=== PATIENT | male | born 1940 | race Caucasian/White ===

== ENCOUNTER 2017-11-17 14:14 | Emergency (ER) | payer OTHER ==
[2017-11-17 14:28] VITALS: BMI 23.8
--- NOTE | 2017-11-17 14:28 | PDOC ---
Rapid Medical Evaluation Time Seen by Provider: 11/17/17 14:25 Medical Evaluation: Allergies Allergy/AdvReac Type Severity Reaction Status Date / Time No Known Allergies Allergy Verified 11/17/17 14:24 I have performed a brief in-person evaluation of this patient. The patient presents with a chief complaint of: dizziness while lying in bed for the past few weeks Pertinent physical exam findings: none I have ordered the following: ekg, basic labs The patient will proceed to the ED for further evaluation. Discharge Disposition - Referrals Referrals: Cristian Al MD [Primary Care Provider] - - Patient Instructions - Post Discharge Activity
[2017-11-17 14:44] LABS: BASO % 0.3 % (0-2.0); EOS % 1.8 % (0-4.5); HEMOGLOBIN 15.8 GM/dL (11.7-16.9); LYMPH % 9.8 % (8-40); MCH 31.1 pg (25.7-33.7); MCHC 32.9 g/dl (32.0-35.9); MEAN CELL VOLUME 94.6 fl (80-96); MEAN PLT VOLUME 8.3 fl (7.5-11.1); MONO % 6.9 % (3.8-10.2); NEUT % 81.2 % (42.8-82.8); PLATELET COUNT 195 K/MM3 (134-434); RBC 5.07 M/mm3 (4.00-5.60); RDW 13.1 % (11.9-15.9); WHITE BLOOD COUNT 9.5 K/mm3 (4.0-10.0)
[2017-11-17 15:23] LABS: ALBUMIN 4.5 g/dl (3.4-5.0); ANION GAP 7 (8-16); BILIRUBIN,TOTAL 0.6 mg/dL (0.2-1.0); BLOOD UREA NITROGEN 20 mg/dL (7-18); CALCIUM 8.7 mg/dL (8.5-10.1); CHLORIDE 107 mmol/L (98-107); CO2 26 mmol/L (21-32); CREATININE 0.8 mg/dL (0.7-1.3); GLUCOSE,RANDOM 97 mg/dL (74-106); POTASSIUM 3.9 mmol/L (3.5-5.1); SGOT/AST 18 U/L (15-37); SGPT/ALT 33 U/L (12-78); SODIUM 140 mmol/L (136-145); TOT PROT 7.8 g/dl (6.4-8.2)
[2017-11-17 15:26] LABS: ALK PHOS 86 U/L (45-117)
--- NOTE | 2017-11-17 15:45 | EKG ---
Test Reason : Blood Pressure : / mmHG Vent. Rate : 075 BPM Atrial Rate : 075 BPM P-R Int : 154 ms QRS Dur : 082 ms QT Int : 372 ms P-R-T Axes : 063 054 058 degrees QTc Int : 415 ms NORMAL SINUS RHYTHM POSSIBLE LEFT ATRIAL ENLARGEMENT NO PREVIOUS ECGS AVAILABLE Confirmed by SHERLYN GUNTER MD ([id number]) on 11/17/2017 3:45:25 PM Referred By: Confirmed By:SHERLYN GUNTER MD
--- NOTE | 2017-11-17 16:18 | PDOC ---
History of Present Illness - General History Source: Patient Exam Limitations: No Limitations - History of Present Illness Initial Comments: 11/17/17 18:03 The patient is a 77 year old male with a significant PMH of hypoglycemia, asthma , HTN, and diverticulitis who presents to the emergency department with lightheadedness and generalized malaise beginning approximately 10 days ago. He reports feeling as though something came over him which is aggravated by lying in bed but he is unable to describe his feeling further. He also reports some associated and light chest pressure and nausea but denies vomiting. The patient reports he has been noncompliant with his prescribed Metoprolol. He denies decreased balance. He denies feeling like the room is spinning. The patient denies shortness of breath, headache and dizziness. Denies fever, chills, vomit, diarrhea and constipation. Denies dysuria, frequency, urgency and hematuria. Allergies: NKA Past surgical history: Appendectomy. Social history: No reported cigarette, alcohol, or drug use. PCP: Dr. Cristian Al <Meng Ornelas - Last Filed: 11/17/17 18:03> <Charo Rodriguez - Last Filed: 11/17/17 19:00> - General Chief Complaint: Lightheaded Stated Complaint: SICK Time Seen by Provider: 11/17/17 14:25 Past History <Meng Ornelas - Last Filed: 11/17/17 18:03> - Past Medical History Anemia: No Asthma: Yes Cancer: No Cardiac Disorders: No CVA: No COPD: No CHF: No DVT: No Dementia: No Diabetes: (HYPOGLYCEMIA) GI Disorders: Yes (DIVERTICULITIS) Disorders: No HTN: Yes Hypercholesterolemia: No Liver Disease: No Seizures: No Thyroid Disease: No - Surgical History Abdominal Surgery: Yes (HERNIA) Appendectomy: Yes Cardiac Surgery: No Cholecystectomy: No Lung Surgery: No Neurologic Surgery: No Orthopedic Surgery: No - Suicide/Smoking/Psychosocial Hx Smoking History: Never smoked Have you smoked in the past 12 months: No Information on smoking cessation initiated: No Hx Alcohol Use: No Drug/Substance Use Hx: No Substance Use Type: None Hx Substance Use Treatment: No <Charo Rodriguez - Last Filed: 11/17/17 19:00> - Past Medical History Allergies/Adverse Reactions: Allergies Allergy/AdvReac Type Severity Reaction Status Date / Time No Known Allergies Allergy Verified 11/17/17 14:24 Home Medications: Ambulatory Orders Ubidecarenone/Vit E Acet [Co Q-10 100 mg Softgel] 1 each PO DAILY 02/14/12 Budesonide/Formeterol Fumarate [SYMBICORT 80/4.5mcg -] 1 inh PO DAILY 01/21/14 Cholecalciferol (Vitamin D3) [Vitamin D-3] 2,000 units PO DAILY 01/21/14 Metoprolol Succinate [Toprol XL -] 25 mg PO DAILY 01/21/14 Hydrocodone Bit/Acetaminophen [Vicodin 5-500mg Tablet -] 1 - 2 tab PO Q6H PRN # 56 tablet 01/22/14 Review of Systems - Review of Systems Able to Perform ROS?: Yes Comments:: 11/17/17 18:03 GENERAL/CONSTITUTIONAL: (+) Generalized malaise. No fever or chills. No weakness. HEAD, EYES, EARS, NOSE AND THROAT: No change in vision. No ear pain or discharge. No sore throat. CARDIOVASCULAR: No chest pain or shortness of breath. RESPIRATORY: No cough, wheezing, or hemoptysis. GASTROINTESTINAL: No nausea, vomiting, diarrhea or constipation. GENITOURINARY: No dysuria, frequency, or change in urination. MUSCULOSKELETAL: No joint or muscle swelling or pain. No neck or back pain. SKIN: No rash NEUROLOGIC: (+) Lightheadedness. No headache, vertigo, loss of consciousness, or change in strength. ENDOCRINE: No increased thirst. No abnormal weight change. HEMATOLOGIC/LYMPHATIC: No anemia, easy bleeding, or history of blood clots. ALLERGIC/IMMUNOLOGIC: No hives or skin allergy. <Meng Ornelas - Last Filed: 11/17/17 18:03> *Physical Exam - Vital Signs Last Vital Signs Temp Pulse Resp BP Pulse Ox 98.6 F 86 16 173/89 96 11/17/17 17:49 11/17/17 17:49 11/17/17 17:49 11/17/17 17:49 11/17/17 17:49 - Physical Exam Comments: 11/17/17 18:03 GENERAL: Awake, alert, and fully oriented, in no acute distress HEAD: No signs of trauma EYES: PERRLA, EOMI, sclera anicteric, conjunctiva clear ENT: Auricles normal inspection, hearing grossly normal, nares patent, oropharynx clear without exudates. Moist mucosa NECK: Normal ROM, supple, no lymphadenopathy, JVD, or masses LUNGS: (+) Expiratory wheezing. Breath sounds equal. No crackles. HEART: Regular rate and rhythm, normal S1 and S2, no murmurs, rubs or gallops ABDOMEN: Soft, nontender, normoactive bowel sounds. No guarding, no rebound. No masses EXTREMITIES: Normal range of motion, no edema. No clubbing or cyanosis. No cords, erythema, or tenderness NEUROLOGICAL: Cranial nerves II through XII grossly intact. Normal speech, normal gait SKIN: Warm, Dry, normal turgor, no rashes or lesions noted. <Meng Ornelas - Last Filed: 11/17/17 18:03> - Vital Signs Last Vital Signs Temp Pulse Resp BP Pulse Ox 98.0 F 85 18 171/96 100 11/17/17 14:26 11/17/17 14:26 11/17/17 14:26 11/17/17 14:26 11/17/17 14:26 <Charo Rodriguez - Last Filed: 11/17/17 19:00> Heart Score/ECG Review - ECG Impressions Comment:: EKG read 18:39- NSR 80 bpm, no acute ST/T changes <Charo Rodriguez - Last Filed: 11/17/17 19:00> ED Treatment Course - LABORATORY CBC & Chemistry Diagram: 11/17/17 14:37 11/17/17 14:37 - ADDITIONAL ORDERS Additional order review: Laboratory Results 11/17/17 14:37 Sodium 140 Potassium 3.9 Chloride 107 Carbon Dioxide 26 Anion Gap 7 L BUN 20 H Creatinine 0.8 Creat Clearance w eGFR > 60 Random Glucose 97 Calcium 8.7 Total Bilirubin 0.6 AST 18 ALT 33 Alkaline Phosphatase 86 Creatine Kinase 103 Troponin I < 0.02 Total Protein 7.8 Albumin 4.5 11/17/17 14:37 RBC 5.07 MCV 94.6 MCHC 32.9 RDW 13.1 MPV 8.3 Neutrophils % 81.2 Lymphocytes % 9.8 Monocytes % 6.9 Eosinophils % 1.8 Basophils % 0.3 <Meng Ornelas - Last Filed: 11/17/17 18:03> - LABORATORY CBC & Chemistry Diagram: 11/17/17 14:37 11/17/17 14:37 - ADDITIONAL ORDERS Additional order review: Laboratory Results 11/17/17 14:37 Sodium 140 Potassium 3.9 Chloride 107 Carbon Dioxide 26 Anion Gap 7 L BUN 20 H Creatinine 0.8 Creat Clearance w eGFR > 60 Random Glucose 97 Calcium 8.7 Total Bilirubin 0.6 AST 18 ALT 33 Alkaline Phosphatase 86 Creatine Kinase 103 Troponin I < 0.02 Total Protein 7.8 Albumin 4.5 11/17/17 14:37 RBC 5.07 MCV 94.6 MCHC 32.9 RDW 13.1 MPV 8.3 Neutrophils % 81.2 Lymphocytes % 9.8 Monocytes % 6.9 Eosinophils % 1.8 Basophils % 0.3 <Charo Rodriguez - Last Filed: 11/17/17 19:00> *DC/Admit/Observation/Transfer - Attestations Scribe Attestion: 11/17/17 18:03 Documentation prepared by Meng Ornelas, acting as medical doctor nuclear medicine for Charo Rodriguez MD. <Meng Ornelas - Last Filed: 11/17/17 18:03> - Discharge Dispostion Admit: No <Charo Rodriguez - Last Filed: 11/17/17 19:00> Diagnosis at time of Disposition: Dizziness - Discharge Dispostion Disposition: HOME Condition at time of disposition: Stable - Referrals Referrals: Cristian Al MD [Primary Care Provider] - - Patient Instructions - Post Discharge Activity
[2017-11-17 17:50] VITALS: BP 173/89; PULSE 86; TEMP 98.6
[2017-11-17] MEDS: ALBUTEROL SO4 2.5/IPRATROPIUM 0.5 INH SOL 3 ML VIAL.NEB. NEB SCH ×3 (18:02→18:36)
[2017-11-17] MEDS ORDERED: ALBUTEROL SO4 2.5/IPRATROPIUM 0.5 INH SOL 3 ML VIAL.NEB. NEB ONE (18:03)
--- NOTE | 2017-11-19 08:40 | EKG ---
Test Reason : Blood Pressure : / mmHG Vent. Rate : 080 BPM Atrial Rate : 080 BPM P-R Int : 144 ms QRS Dur : 090 ms QT Int : 368 ms P-R-T Axes : 012 041 054 degrees QTc Int : 424 ms NORMAL SINUS RHYTHM NORMAL ECG WHEN COMPARED WITH ECG OF 17-NOV-2017 14:36, NONSPECIFIC T WAVE ABNORMALITY, WORSE IN ANTERIOR LEADS Confirmed by IVA REAL, FANTA ([id number]) on 11/19/2017 8:40:52 AM Referred By: Confirmed By:FANTA ENRIQUE MD
== END 2017-11-17 19:06 | disposition home or self-care (01) ==
LOC: JER 14:14
PROC: 3E0F7GC Introduction of Other Therapeutic Substance into Respiratory Tract, Via Natural or Artificial Opening (ICD-10-PCS; principal; 2017-11-17)
DX: R42 Dizziness and giddiness (principal); J45.909 Unspecified asthma, uncomplicated; I10 Essential (primary) hypertension; Z87.19 Personal history of other diseases of the digestive system
CPT/HCPCS: 36415; 71046-TC-FY; 80053; 82550; 84484; 85025; 93005; 93010; 94640; 99283-25

== ENCOUNTER 2018-03-20 18:50 | Inpatient (IN) | payer OTHER ==
--- NOTE | 2018-03-20 18:56 | PDOC ---
Rapid Medical Evaluation Time Seen by Provider: 03/20/18 18:52 Medical Evaluation: Allergies Allergy/AdvReac Type Severity Reaction Status Date / Time No Known Allergies Allergy Verified 11/17/17 14:24 I have performed a brief in-person evaluation of this patient. The patient presents with a chief complaint of: sent by his PCP (Dr. Cristian Al) for work up and retirement placement. Patient has no complaints Pertinent physical exam findings: none I have ordered the following: labs, UA/culture The patient will proceed to the ED for further evaluation. Discharge Disposition - Diagnosis Pain - Referrals - Patient Instructions - Post Discharge Activity
--- NOTE | 2018-03-20 20:23 | PDOC ---
History of Present Illness - General Chief Complaint: Pain Stated Complaint: PCP SENT ADMISSION, ? N.H PLACEMENT Time Seen by Provider: 03/20/18 18:52 - History of Present Illness Initial Comments: 03/20/18 20:23 77 year old male with a significant PMH of hypoglycemia, asthma, HTN, and diverticulitis send by PCP for frequent falls and progressively worsening memory loss. send by Dr. Al for evaluation. 03/20/18 21:38 Past History - Past Medical History Allergies/Adverse Reactions: Allergies Allergy/AdvReac Type Severity Reaction Status Date / Time No Known Allergies Allergy Verified 03/20/18 18:54 Home Medications: Ambulatory Orders Ubidecarenone/Vit E Acet [Co Q-10 100 mg Softgel] 1 each PO DAILY 02/14/12 Budesonide/Formeterol Fumarate [SYMBICORT 80/4.5mcg -] 1 inh PO DAILY 01/21/14 Cholecalciferol (Vitamin D3) [Vitamin D-3] 2,000 units PO DAILY 01/21/14 Metoprolol Succinate [Toprol XL -] 25 mg PO DAILY 01/21/14 Hydrocodone Bit/Acetaminophen [Vicodin 5-500mg Tablet -] 1 - 2 tab PO Q6H PRN # 56 tablet 01/22/14 Anemia: No Asthma: Yes Cancer: No Cardiac Disorders: No CVA: No COPD: No CHF: No DVT: No Dementia: Yes Diabetes: (HYPOGLYCEMIA) GI Disorders: Yes (DIVERTICULITIS) Disorders: No HTN: Yes Hypercholesterolemia: No Liver Disease: No Seizures: No Thyroid Disease: No - Surgical History Abdominal Surgery: Yes (HERNIA) Appendectomy: Yes Cardiac Surgery: No Cholecystectomy: No Lung Surgery: No Neurologic Surgery: No Orthopedic Surgery: No - Suicide/Smoking/Psychosocial Hx Smoking History: Never smoked Have you smoked in the past 12 months: No Information on smoking cessation initiated: No Hx Alcohol Use: No Drug/Substance Use Hx: No Substance Use Type: None Hx Substance Use Treatment: No *Physical Exam - Vital Signs Last Vital Signs Temp Pulse Resp BP Pulse Ox 99.0 F 74 18 128/71 100 03/20/18 18:55 03/20/18 18:55 03/20/18 18:55 03/20/18 18:55 03/20/18 18:55 - Physical Exam General Appearance: Yes: Appropriately Dressed HEENT: positive: Normal ENT Inspection Respiratory/Chest: positive: Lungs Clear, Normal Breath Sounds Cardiovascular: positive: Regular Rhythm, Regular Rate Gastrointestinal/Abdominal: positive: Normal Bowel Sounds, Soft, Distended. negative: Tender Musculoskeletal: positive: Normal Inspection. negative: CVA Tenderness Extremity: positive: Normal Capillary Refill, Normal Inspection Integumentary: positive: Normal Color, Dry, Warm Neurologic: positive: Fully Oriented, Alert, Normal Mood/Affect ED Treatment Course - LABORATORY CBC & Chemistry Diagram: 03/20/18 21:35 03/20/18 21:35 - RADIOLOGY Radiology Studies Ordered: Category Date Time Status CHEST X-RAY PORTABLE* [RAD] Stat Radiology 03/20/18 20:21 Ordered Medical Decision Making - Medical Decision Making 03/20/18 21:40 I spoke to Cristian Kirby. patient to be admitted for evaluation of AMS and frequent falls. 03/20/18 23:26 CT head: questionable obstruction of the foramina of durbin. recommends neurosurgery consult. Dr. Arnett pageaminata. 03/20/18 23:28 CT head reviewed with Dr. Al and Dr. arnett. patient to be evaluated by Neurosurgery in the AM. patient may require SHunt placement as per neurosurgery. 03/20/18 23:58 03/21/18 00:01 *DC/Admit/Observation/Transfer Diagnosis at time of Disposition: Altered mental status Qualifiers: Altered mental status type: disorientation Qualified Code(s): R41.0 - Disorientation, unspecified - Discharge Dispostion Decision to Admit order: Yes - Referrals - Patient Instructions - Post Discharge Activity
--- NOTE | 2018-03-20 21:31 | PDOC ---
*Physical Exam - Vital Signs Last Vital Signs Temp Pulse Resp BP Pulse Ox 99.0 F 74 18 128/71 100 03/20/18 18:55 03/20/18 18:55 03/20/18 18:55 03/20/18 18:55 03/20/18 18:55 Medical Decision Making - Medical Decision Making 03/20/18 21:30 agree with care from JOAQUIN Singer *DC/Admit/Observation/Transfer Diagnosis at time of Disposition: Pain - Referrals Referrals: Cristian Al MD [Primary Care Provider] - - Patient Instructions - Post Discharge Activity
[2018-03-20 21:43] LABS: BASO % 0.3 % (0-2.0); EOS % 3.9 % (0-4.5); HEMATOCRIT 41.1 % (35.4-49); HEMOGLOBIN 14.1 GM/dL (11.7-16.9); MCH 32.2 pg (25.7-33.7); MCHC 34.2 g/dl (32.0-35.9); MEAN CELL VOLUME 94.1 fl (80-96); MEAN PLT VOLUME 8.4 fl (7.5-11.1); MONO % 11.9 % (3.8-10.2); NEUT % 67.9 % (42.8-82.8); PLATELET COUNT 206 K/MM3 (134-434); RBC 4.37 M/mm3 (4.00-5.60); WHITE BLOOD COUNT 6.3 K/mm3 (4.0-10.0)
[2018-03-20 22:16] LABS: ALBUMIN 3.9 g/dl (3.4-5.0); ALK PHOS 87 U/L (45-117); ANION GAP 5 (8-16); BILIRUBIN,TOTAL 0.5 mg/dL (0.2-1.0); BLOOD UREA NITROGEN 22 mg/dL (7-18); CALCIUM 8.8 mg/dL (8.5-10.1); CHLORIDE 106 mmol/L (98-107); CO2 28 mmol/L (21-32); GLUCOSE,RANDOM 99 mg/dL (74-106); POTASSIUM 4.2 mmol/L (3.5-5.1); SGOT/AST 17 U/L (15-37); SGPT/ALT 30 U/L (12-78); SODIUM 139 mmol/L (136-145); TOT PROT 7.2 g/dl (6.4-8.2)
--- NOTE | 2018-03-20 23:04 | HP ---
Admitting History and Physical - Admission History of Present Illness: 77 y/o frequent falls and altered mental status getting worst over x 1 yr time forgetfall not taking meds poor apetite History Source: Family Member Limitations to Obtaining History: Dementia - Past Medical History ESCORT PATIENTS: Yes: Dementia Cardiovascular: Yes: HTN Pulmonary: Yes: Asthma Gastrointestinal: Yes: GERD - Past Surgical History Past Surgical History: Yes: Appendectomy - Smoking History Smoking history: Never smoked Have you smoked in the past 12 months: No - Alcohol/Substance Use Hx Alcohol Use: No History of Substance Use: reports: None - Social History Usual Living Arrangement: Yes: Alone ADL: Independent History of Recent Travel: No Home Medications - Allergies Allergies/Adverse Reactions: Allergies Allergy/AdvReac Type Severity Reaction Status Date / Time No Known Allergies Allergy Verified 03/20/18 18:54 - Home Medications Home Medications: Ambulatory Orders Ubidecarenone/Vit E Acet [Co Q-10 100 mg Softgel] 1 each PO DAILY 02/14/12 Budesonide/Formeterol Fumarate [SYMBICORT 80/4.5mcg -] 1 inh PO DAILY 01/21/14 Cholecalciferol (Vitamin D3) [Vitamin D-3] 2,000 units PO DAILY 01/21/14 Metoprolol Succinate [Toprol XL -] 25 mg PO DAILY 01/21/14 Hydrocodone Bit/Acetaminophen [Vicodin 5-500mg Tablet -] 1 - 2 tab PO Q6H PRN # 56 tablet 01/22/14 Family Disease History - Family Disease History Family History: Unremarkable Review of Systems - Review of Systems Constitutional: reports: Weakness Eyes: reports: No Symptoms HENT: reports: No Symptoms Neck: reports: No Symptoms Cardiovascular: reports: No Symptoms Respiratory: reports: No Symptoms Gastrointestinal: reports: Other (gerd) Genitourinary: reports: No Symptoms Breasts: reports: No Symptoms Reported Musculoskeletal: reports: Back Pain Integumentary: reports: No Symptoms Neurological: reports: Confusion, Weakness Endocrine: reports: No Symptoms Hematology/Lymphatic: reports: No Symptoms Psychiatric: reports: Other (oms) Physical Examination Vital Signs: Vital Signs Temperature 99.0 F 03/20/18 18:55 Pulse Rate 74 03/20/18 18:55 Respiratory Rate 18 03/20/18 18:55 Blood Pressure 128/71 03/20/18 18:55 O2 Sat by Pulse Oximetry (%) 100 06/12/18 18:55 Constitutional: Yes: Calm Eyes: Yes: WNL HENT: Yes: WNL Neck: Yes: WNL Cardiovascular: Yes: WNL Respiratory: Yes: WNL Gastrointestinal: Yes: WNL ...Rectal Exam: Yes: Deferred Renal/: Yes: WNL Breast(s): Yes: WNL Musculoskeletal: Yes: Back Pain Extremities: Yes: WNL Edema: No Integumentary: Yes: WNL Neurological: Yes: Weakness ...Motor Strength: WNL Psychiatric: Yes: Other (oms) Labs: CBC, BMP 03/20/18 21:35 03/20/18 21:35 Problem List - Problems (1) Falls Code(s): W19.XXXA - UNSPECIFIED FALL, INITIAL ENCOUNTER Assessment/Plan iv neuro carina meds ppi meds
[2018-03-20] MEDS ORDERED: SODIUM CHLORIDE 1,000 ML IV SCH (23:15)
[2018-03-21] MEDS ORDERED: HEMOQUE TEST 1 EACH EACH ONE (01:16)
[2018-03-21] MEDS: BUDESONIDE/FORMETEROL FUMARATE 80/4.5 mcg INHALER IH SCH ×3 (01:37→21:02)
[2018-03-21 02:08] VITALS: BMI 23.3
[2018-03-21 08:12] LABS: BASO % 0.4 % (0-2.0); EOS % 5.4 % (0-4.5); HEMATOCRIT 40.5 % (35.4-49); LYMPH % 16.7 % (8-40); MCH 32.5 pg (25.7-33.7); MCHC 34.7 g/dl (32.0-35.9); MEAN CELL VOLUME 93.7 fl (80-96); MEAN PLT VOLUME 8.5 fl (7.5-11.1); MONO % 13.6 % (3.8-10.2); NEUT % 63.9 % (42.8-82.8); PLATELET COUNT 190 K/MM3 (134-434); RBC 4.32 M/mm3 (4.00-5.60); WHITE BLOOD COUNT 6.1 K/mm3 (4.0-10.0)
[2018-03-21 08:47] LABS: ALBUMIN 3.8 g/dl (3.4-5.0); ALK PHOS 79 U/L (45-117); ANION GAP 8 (8-16); BILIRUBIN,TOTAL 0.5 mg/dL (0.2-1.0); BLOOD UREA NITROGEN 17 mg/dL (7-18); CALCIUM 8.8 mg/dL (8.5-10.1); CHLORIDE 106 mmol/L (98-107); CO2 28 mmol/L (21-32); CREATININE 0.8 mg/dL (0.7-1.3); GLUCOSE,RANDOM 86 mg/dL (74-106); SGOT/AST 15 U/L (15-37); SGPT/ALT 28 U/L (12-78); SODIUM 142 mmol/L (136-145); TOT PROT 7.1 g/dl (6.4-8.2)
--- NOTE | 2018-03-21 09:42 | EKG ---
Test Reason : Blood Pressure : / mmHG Vent. Rate : 062 BPM Atrial Rate : 062 BPM P-R Int : 164 ms QRS Dur : 084 ms QT Int : 424 ms P-R-T Axes : 027 064 073 degrees QTc Int : 430 ms NORMAL SINUS RHYTHM NORMAL ECG WHEN COMPARED WITH ECG OF 17-NOV-2017 18:32, NO SIGNIFICANT CHANGE WAS FOUND Confirmed by FANTA ENRIQUE MD ([id number]) on 03/21/2018 9:42:34 AM Referred By: Confirmed By:FANTA ENRIQUE MD
--- NOTE | 2018-03-21 10:04 | PN ---
Progress Note, Physician History of Present Illness: comfortabl vss neurosx today for ? shunt brain for dilated ventricles ? sec trauma?? - Current Medication List Current Medications: Active Medications Aspirin (Ecotrin -) 81 mg PO DAILY [facility] Budesonide/Formoterol Fumarate (Symbicort 80/4.5mcg -) 2 puff IH BID [facility] Last Admin: 03/21/18 01:37 Dose: 2 puff Sodium Chloride (Normal Saline -) 1,000 mls @ 50 mls/hr IV ASDIR [facility] Stop: 03/21/18 23:09 Last Admin: 03/20/18 23:19 Dose: Not Given Metoprolol Succinate (Toprol Xl -) 25 mg PO DAILY [facility] Pantoprazole Sodium (Protonix -) 20 mg PO DAILY [facility] - Objective Vital Signs: Vital Signs Temperature 98.1 F 03/21/18 06:00 Pulse Rate 59 L 03/21/18 06:00 Respiratory Rate 18 03/21/18 06:00 Blood Pressure 143/63 03/21/18 06:00 O2 Sat by Pulse Oximetry (%) 98 03/21/18 00:40 Labs: CBC, BMP 03/21/18 07:30 03/21/18 07:30 Problem List - Problems (1) Falls Code(s): W19.XXXA - UNSPECIFIED FALL, INITIAL ENCOUNTER
[2018-03-21] MEDS: PANTOPRAZOLE 20 MG TABLET (FP) PO SCH (10:54)
[2018-03-21] MEDS: metoPROLOL SUCCINATE 25 MG TAB.SR.24H (FP) PO SCH (10:54)
[2018-03-21] MEDS: ASPIRIN COATED 81 MG TABLET.EC PO SCH (10:55)
--- NOTE | 2018-03-21 13:58 | CONSULT ---
Consult - text type - Consultation Consultation Note: Carl Martinez is an 77 year old gentleman with altered mental status. The patient is a retired [place] and has a history of cognitive decline over the past year as well as gait difficulty resulting in falls. He has no known urinary difficulties (incontinence). The patient presented to the [facility] Emergency Room yesterday and Head CT demonstrated significant ventriculomegally with some atrophy. The hydrocephalus appears to be communicating, although the fourth ventricle is not especially large. CSF diversion with PIPELINE MAINTENANCE SUPERVISOR shunting may be a suitable treatment for him. I described the risks, benefits, and alternatives to PIPELINE MAINTENANCE SUPERVISOR shunt placement to the patient in great detail. I also spoke with patient's cousin Charo by telephone. The risks included, but were not limited to: , coma, paralysis, bleeding, infection, leakage of CSF possibly requiring spinal drainage or additional surgery, shunt migration/malfunction/malposition possibly requiring additional surgery, failure to improve, and the need for additional surgery. I explained that underdrainage may not relieve his symptoms and overdrainage may result in subdural hematoma formation which may require craniotomy. I plan to insert a programmable valve set at a high pressure setting and to carefully increase the amount of CSF diversion. All questions were answered. Informed consent was obtained. I offered them the option of seeking another surgeon or another opinion. They ask that we proceed with surgery. I plan PIPELINE MAINTENANCE SUPERVISOR shunting in the morning of March. We will have the patient remain NPO post midnight and have him shampoo and shower with Hibiclens tonight.
--- NOTE | 2018-03-21 17:00 | CON.NEURO ---
Consult Consult Specialty:: NEUROLOGY-ERASTO REAL Reason for Consultation:: Alt.MSx1 year - History of Present Illness History of Present Illness: 77 y/o frequent falls and altered mental status getting worst over x 1 yr time. Pt. reports he has had short-term memory decline x 2 years and urinary frequency and urgency x 2 years too, denies change in gait but admits to recent falls, does not recall how many times. Denies all other neurologic symptoms. Forgets to take meds. 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 Cardio/Vascular: Yes: HTN Pulmonary: Yes: Asthma Gastrointestinal: Yes: GERD - Past Surgical History Past Surgical History: Yes: Appendectomy - Alcohol/Substance Use Hx Alcohol Use: No History of Substance Use: reports: None - Smoking History Smoking history: Never smoked Have you smoked in the past 12 months: No - Social History ADL: Independent History of Recent Travel: No Home Medications - Allergies Allergies/Adverse Reactions: Allergies Allergy/AdvReac Type Severity Reaction Status Date / Time No Known Allergies Allergy Verified 03/20/18 18:54 - Home Medications Home Medications: Ambulatory Orders Ubidecarenone/Vit E Acet [Co Q-10 100 mg Softgel] 1 each PO DAILY 02/14/12 Budesonide/Formeterol Fumarate [SYMBICORT 80/4.5mcg -] 1 inh PO DAILY 01/21/14 Cholecalciferol (Vitamin D3) [Vitamin D-3] 2,000 units PO DAILY 01/21/14 Metoprolol Succinate [Toprol XL -] 25 mg PO DAILY 01/21/14 Hydrocodone Bit/Acetaminophen [Vicodin 5-500mg Tablet -] 1 - 2 tab PO Q6H PRN # 56 tablet 01/22/14 Physical Exam-Neuro Vital Signs: Vital Signs Temperature 98.0 F 03/21/18 14:18 Pulse Rate 60 03/21/18 14:18 Respiratory Rate 20 03/21/18 14:18 Blood Pressure 134/70 03/21/18 14:18 O2 Sat by Pulse Oximetry (%) 95 03/21/18 09:00 Labs: CBC, BMP 03/21/18 07:30 03/21/18 07:30 - Neuro Exam Level Of Consciousness: Yes: Alert, Oriented to Person, Oriented to Place Dominant Hand: Right Mini Mental Exam: Follows all commands + logorrhea, + tangential thoughts+mild behavioral (frontal type) disinhibition. Impaired attention/concentration/stm. DTR's: 1+ Left Achilles, 1+ Right Achilles (Bilat knee jerks- 3+), 2+ Left Bicep , 2+ Right Bicep, 2+ Left Tricep, 2+ Right Tricep, 2+ Left Brachioradialis, 2+ Right Brachioradialis Babinski: Present (bilat. upgoing toes) Response to light touch: Normal Response to pain prick: Normal Response to temperature: Normal Response to vibration: Normal Motor Strength: 5/5: Left Arm, Right Arm, Left Leg, Right Leg (+ increased tone , spastic type, in both legs) Gait: Other (Short steps, turns enbloc+pull test, somewhat magnetic) Imaging - Results Cat Scan: Report Reviewed (Marked dilatation of lat.vents/narrowing of foramen of Desai) Assessment/Plan Pt. with cognitive deterioration, urinary frequency/urgency, frontal lobe signs/ increased tone in legs/bilat upgoing toes. Imaging- hydrocephalus?? obstructive. Agree with evp sales shunt placement. Thank you, Robert Gonzalez MD
[2018-03-21] MEDS ORDERED: PT OWN MED DRAWER 7, Y5N ONE (20:57)
[2018-03-21 22:00] LABS: URINE APPEARANCE CLEAR; URINE BILIRUBIN NEGATIVE (<2.0 mg/dL); URINE COLOR LTYELLOW; URINE GLUCOSE (UA) NEGATIVE (NEGATIVE); URINE KETONE NEGATIVE (NEGATIVE); URINE LEUK ESTERASE NEGATIVE (NEGATIVE); URINE NITRITE NEGATIVE (NEGATIVE); URINE PROTEIN NEGATIVE (NEGATIVE); URINE UROBILINOGEN NEGATIVE mg/dL (0.2-1.0)
[2018-03-21] MEDS ORDERED: CHLORHEXIDINE GLUCONATE 4% CLEANSER FOR DECOLONIZATION TP SCH (22:00)
[2018-03-22 08:56] LABS: ANION GAP 9 (8-16); BLOOD UREA NITROGEN 19 mg/dL (7-18); CALCIUM 9.2 mg/dL (8.5-10.1); CHLORIDE 106 mmol/L (98-107); CO2 27 mmol/L (21-32); CREATININE 0.9 mg/dL (0.7-1.3); GLUCOSE,RANDOM 88 mg/dL (74-106); POTASSIUM 4.3 mmol/L (3.5-5.1); SODIUM 142 mmol/L (136-145)
[2018-03-22 09:01] LABS: BASO % 0.4 % (0-2.0); EOS % 6.7 % (0-4.5); HEMATOCRIT 44.8 % (35.4-49); HEMOGLOBIN 15.2 GM/dL (11.7-16.9); LYMPH % 20.4 % (8-40); MCH 32.2 pg (25.7-33.7); MCHC 33.9 g/dl (32.0-35.9); MEAN PLT VOLUME 8.6 fl (7.5-11.1); MONO % 12.5 % (3.8-10.2); PLATELET COUNT 192 K/MM3 (134-434); RBC 4.72 M/mm3 (4.00-5.60); RDW 13.2 % (11.9-15.9); WHITE BLOOD COUNT 6.2 K/mm3 (4.0-10.0)
[2018-03-22 09:05] LABS: INR 1.02 (0.82-1.09); PROTHROMBIN TIME (PATIENT) 11.5 SEC (9.7-13.0)
--- NOTE | 2018-03-22 09:40 | PN ---
Progress Note, Physician History of Present Illness: comfortable vss bm ok oob v/p shunt today chk inr cleared for sx ok to give meds - Current Medication List Current Medications: Active Medications Aspirin (Ecotrin -) 81 mg PO DAILY [facility] Last Admin: 03/21/18 10:55 Dose: 81 mg Budesonide/Formoterol Fumarate (Symbicort 80/4.5mcg -) 2 puff IH BID [facility] Last Admin: 03/21/18 21:02 Dose: 2 puff Chlorhexidine Gluconate (Hibiclens For Decolonization -) 1 applic TP HS [facility] Metoprolol Succinate (Toprol Xl -) 25 mg PO DAILY [facility] Last Admin: 03/21/18 10:54 Dose: 25 mg Pantoprazole Sodium (Protonix -) 20 mg PO DAILY [facility] Last Admin: 03/21/18 10:54 Dose: 20 mg - Objective Vital Signs: Vital Signs Temperature 98.0 F 03/21/18 14:18 Pulse Rate 60 03/21/18 14:18 Respiratory Rate 20 03/21/18 14:18 Blood Pressure 134/70 03/21/18 14:18 O2 Sat by Pulse Oximetry (%) 95 03/21/18 21:00 Labs: CBC, BMP 03/21/18 07:30 03/21/18 07:30 Problem List - Problems (1) Falls Code(s): W19.XXXA - UNSPECIFIED FALL, INITIAL ENCOUNTER
[2018-03-22] MEDS: metoPROLOL SUCCINATE 25 MG TAB.SR.24H (FP) PO SCH (09:50)
[2018-03-22] MEDS: ASPIRIN COATED 81 MG TABLET.EC PO SCH (10:01)
[2018-03-22] MEDS: BUDESONIDE/FORMETEROL FUMARATE 80/4.5 mcg INHALER IH SCH ×2 (10:02→21:02)
[2018-03-22] MEDS: PANTOPRAZOLE 20 MG TABLET (FP) PO SCH (10:02)
[2018-03-22] MEDS ORDERED: ONDANSETRON 4 MG/2 ML VIAL IVPUSH PRN ×2 (10:43→14:53)
[2018-03-22] MEDS ORDERED: PROMETHAZINE HCL 25 MG/1 ML VIAL IVPB PRN ×2 (10:43→14:53)
[2018-03-22] MEDS ORDERED: LACTATED RINGERS SOLUTION 1,000 ML IV SCH ×2 (10:45→14:53)
[2018-03-22] MEDS ORDERED: PROPOFOL 20 ML ONE (11:00)
[2018-03-22] MEDS ORDERED: ROCURONIUM BROMIDE 50 MG/5 ML VIAL ONE (11:00)
[2018-03-22] MEDS ORDERED: MIDAZOLAM HCL 2 MG/2 ML SINGLE DOSE VIAL ONE (11:00)
[2018-03-22] MEDS ORDERED: LIDOCAINE HCL/PF 2% SDV 5ML VIAL ONE (11:01)
[2018-03-22] MEDS ORDERED: ALBUTEROL SO4 0.083% IH SOL 2.5 MG/3 ML VIAL.NEB. NEB ONE (11:28)
[2018-03-22] MEDS ORDERED: THROMBIN (BOVINE) 20,000 UNIT VIAL TP ONE (11:30)
[2018-03-22] MEDS ORDERED: ceFAZolin SODIUM 1 GM VIAL ONE ×2 (11:53→20:42)
[2018-03-22] MEDS ORDERED: ceFAZolin SODIUM 1 GM VIAL IVPB ONE (11:54)
[2018-03-22] MEDS ORDERED: VANCOMYCIN 1,000 MG VIAL (RESTRICTED TO ID ONLY) ONE (11:55)
[2018-03-22] MEDS ORDERED: VANCOMYCIN 1,000 MG VIAL (RESTRICTED TO ID ONLY) IVPB ONE (11:57)
[2018-03-22] MEDS ORDERED: DEXAMETHASONE SOD PHOSPHATE 4 MG/1 ML VIAL ONE (11:59)
[2018-03-22] MEDS ORDERED: ePHEDrine SULFATE 50 MG/1 ML AMPULE ONE (12:02)
[2018-03-22] MEDS ORDERED: LIDOCAINE 1%/EPI 1:100000 (20 ML MULTI DOSE VIAL) IJ ONE (12:12)
[2018-03-22] MEDS ORDERED: NEOSTIGMINE METHYLSULFATE 0.5 MG/ML - 10 ML MDV ONE (13:00)
[2018-03-22] MEDS ORDERED: GLYCOPYRROLATE 0.2 MG/1 ML VIAL ONE (13:00)
[2018-03-22] MEDS ORDERED: ACETAMINOPHEN INJECTION 100 ML IVPB ONE (13:01)
[2018-03-22] MEDS ORDERED: hydrALAZINE HCL 20 MG/ML VIAL ONE (13:21)
[2018-03-22] MEDS ORDERED: oxyCODONE HCL 5 MG TABLET PO PRN ×2 (13:59→14:18)
[2018-03-22] MEDS ORDERED: diphenhydrAMINE HCL 25 MG CAPSULE (FP) PO PRN (13:59)
--- NOTE | 2018-03-22 14:27 | OP ---
Operative Note - Note: Operative Date: 03/22/18 Pre-Operative Diagnosis: Normal pressure Hydrocephalus Operation: Right occipital ventriculo-peritoneal shunt placement Implants: SENIOR APPLICATION SECURITY CONSULTANT shunt Post-Operative Diagnosis: Same as Pre-op Surgeon: Justin Alfaro Laboratory Supervisor: Shirlene Godinez Anesthesiologist/SPLIT LEATHER DEPARTMENT SUPERVISOR: Dillon Aguilar Anesthesia: General Estimated Blood Loss (mls): 50 Drains, Volume Out (mls): 370 (bergeron) Fluid Volume Replaced (mls): 1,000 Operative Report Dictated: Yes
--- NOTE | 2018-03-22 14:28 | SURG ---
Surgery Principal Examiner Note Principal Examiner: Shirlene Godinez PA-C Date of Service: 03/22/18 Diagnosis: normal pressure hydrocepahlus Procedure: Right occipital ventriculo-peritoneal shunt placement I was present for the entirety of the operative procedure. For further detail, please refer to operative report. Visit type - Case Type Case Type: ED Admission - Emergency Emergency Visit: Yes ED Registration Date: 03/20/18 Care time: The patient presented to the Emergency Department on the above date and was hospitalized for further evaluation of their emergent condition. - New patient This patient is new to me today: Yes Date on this admission: 03/22/18
[2018-03-22] MEDS ORDERED: PT OWN MED DRAWER 7, Y5N ONE (20:42)
[2018-03-22] MEDS ORDERED: DEXTROSE 5%-WATER - 50 ML IVPB ONE (20:43)
[2018-03-22] MEDS: ASPIRIN 81 MG CHEWABLE TABLETS PO SCH (21:02)
[2018-03-22] MEDS: CEFAZOLIN 1 GM in DEXTROSE 5%-WATER - 50 ML IVPB SCH (21:02)
[2018-03-22] MEDS: HEPARIN NA (PORCINE) 5,000 UNITS/ML 1ML VIAL SQ SCH (21:02)
[2018-03-23] MEDS ORDERED: DEXTROSE 5%-WATER - 50 ML IVPB ONE (05:07)
[2018-03-23] MEDS ORDERED: ceFAZolin SODIUM 1 GM VIAL ONE (05:07)
[2018-03-23] MEDS: CEFAZOLIN 1 GM in DEXTROSE 5%-WATER - 50 ML IVPB SCH (05:14)
[2018-03-23] MEDS: HEPARIN NA (PORCINE) 5,000 UNITS/ML 1ML VIAL SQ SCH ×3 (05:15→21:34)
[2018-03-23 07:10] LABS: HEMATOCRIT 39.4 % (35.4-49); HEMOGLOBIN 13.6 GM/dL (11.7-16.9); MCH 32.5 pg (25.7-33.7); MCHC 34.5 g/dl (32.0-35.9); MEAN CELL VOLUME 94.2 fl (80-96); MEAN PLT VOLUME 8.6 fl (7.5-11.1); PLATELET COUNT 179 K/MM3 (134-434); RBC 4.18 M/mm3 (4.00-5.60); RDW 13.1 % (11.9-15.9); WHITE BLOOD COUNT 10.7 K/mm3 (4.0-10.0)
[2018-03-23 07:42] LABS: ANION GAP 9 (8-16); BLOOD UREA NITROGEN 16 mg/dL (7-18); CALCIUM 8.8 mg/dL (8.5-10.1); CHLORIDE 105 mmol/L (98-107); CO2 26 mmol/L (21-32); GLUCOSE,RANDOM 97 mg/dL (74-106); POTASSIUM 3.6 mmol/L (3.5-5.1); SODIUM 140 mmol/L (136-145)
--- NOTE | 2018-03-23 09:03 | PN ---
Progress Note (short form) - Note Progress Note: POD #1 - s/p V-P shunt placement under general anesthesia. VSS. Pt. doing well, sitting up comfortably in bed eating breakfast. No complaints. No apparent anesthetic complications noted. Continue current care.
[2018-03-23] MEDS ORDERED: FOLIC ACID 1 MG TABLET (FP) PO SCH (10:00)
[2018-03-23] MEDS ORDERED: FERROUS SO4 325 MG TABLET (FP) PO SCH (10:00)
[2018-03-23] MEDS ORDERED: PT OWN MED DRAWER 7, Y5N ONE ×2 (10:19→19:03)
[2018-03-23] MEDS: BUDESONIDE/FORMETEROL FUMARATE 80/4.5 mcg INHALER IH SCH ×2 (10:20→21:34)
[2018-03-23] MEDS: metoPROLOL SUCCINATE 25 MG TAB.SR.24H (FP) PO SCH (10:21)
[2018-03-23] MEDS: PANTOPRAZOLE 20 MG TABLET (FP) PO SCH (10:21)
[2018-03-23] MEDS: ASPIRIN 81 MG CHEWABLE TABLETS PO SCH ×2 (10:21→21:34)
--- NOTE | 2018-03-23 13:15 | PN ---
Progress Note, Physician Chief Complaint: pt c/o abd distention no bm? hard stool oob vss History of Present Illness: v/p shunt in place wbc up? - Current Medication List Current Medications: Active Medications Aspirin (Asa -) 81 mg PO BID [facility] Last Admin: 03/23/18 10:21 Dose: 81 mg Budesonide/Formoterol Fumarate (Symbicort 80/4.5mcg -) 2 puff IH BID [facility] Last Admin: 03/23/18 10:20 Dose: 2 puff Diphenhydramine HCl (Benadryl -) 25 mg PO Q6H PRN PRN Reason: FOR ITCHING Fentanyl (Sublimaze Injection -) 50 mcg IVPUSH [id number] PRN PRN Reason: PAIN-PACU ORDER X 4 DOSES ONLY Ferrous Sulfate (Feosol -) 325 mg PO DAILY [facility] Last Admin: 03/23/18 10:21 Dose: 325 mg Folic Acid (Folic Acid -) 1 mg PO DAILY [facility] Last Admin: 03/23/18 10:21 Dose: 1 mg Heparin Sodium (Porcine) (Heparin -) 5,000 unit SQ TID [facility] Last Admin: 03/23/18 05:15 Dose: 5,000 unit Lactated Ringer's (Lactated Ringers Solution) 1,000 mls @ 125 mls/hr IV ASDIR [facility] Last Admin: 03/22/18 13:29 Dose: 200 mls Metoprolol Succinate (Toprol Xl -) 25 mg PO DAILY [facility] Last Admin: 03/23/18 10:21 Dose: 25 mg Ondansetron HCl (Zofran Injection) 4 mg IVPUSH Q6H PRN PRN Reason: NAUSEA AND/OR VOMITING Oxycodone HCl (Roxicodone -) 5 mg PO Q4H PRN PRN Reason: PAIN LEVEL 1-5 Last Admin: 03/23/18 08:35 Dose: 5 mg Oxycodone HCl (Roxicodone -) 10 mg PO Q4H PRN PRN Reason: PAIN LEVEL 6-10 Pantoprazole Sodium (Protonix -) 20 mg PO DAILY [facility] Last Admin: 03/23/18 10:21 Dose: 20 mg Polyethylene Glycol (Miralax (For Daily Use) -) 17 gm PO DAILY [facility] Promethazine HCl (Phenergan Injection -) 12.5 mg IVPB Q6H PRN PRN Reason: NAUSEA-FOR RESCUE AFTER 15 MIN - Objective Vital Signs: Vital Signs Temperature 98.6 F 03/23/18 10:02 Pulse Rate 71 03/23/18 10:02 Respiratory Rate 20 03/23/18 10:02 Blood Pressure 141/62 03/23/18 10:02 O2 Sat by Pulse Oximetry (%) 94 L 03/22/18 21:00 Constitutional: Yes: Calm Eyes: Yes: WNL HENT: Yes: Other (shunt in place) Neck: Yes: WNL Cardiovascular: Yes: Regular Rate and Rhythm Respiratory: Yes: WNL Gastrointestinal: Yes: Other (bergeron out) ...Rectal Exam: Yes: Deferred Genitourinary: Yes: Other (bergeron out) Extremities: Yes: WNL Edema: No Integumentary: Yes: WNL Wound/Incision: Yes: Clean/Dry Neurological: Yes: Confusion ...Motor Strength: WNL Psychiatric: Yes: Other (oms!!) Labs: CBC, BMP 03/23/18 06:35 03/23/18 06:35 INR, PTT INR 1.02 (0.82-1.09) 03/22/18 06:45 Problem List - Problems (1) Falls Code(s): W19.XXXA - UNSPECIFIED FALL, INITIAL ENCOUNTER Assessment/Plan fua shows ? ileassx consult cbc [facility]!!! OOB AMBULATE
[2018-03-23] MEDS: POLYETHYLENE GLYCOL 3350 119 GM BTL PO SCH (13:30)
--- NOTE | 2018-03-23 15:55 | CONSULT ---
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: Yes: Dementia Cardio/Vascular: Yes: HTN Pulmonary: Yes: Asthma Gastrointestinal: Yes: GERD - Past Surgical History Past Surgical History: Yes: Appendectomy - Alcohol/Substance Use Hx Alcohol Use: No History of Substance Use: reports: None - Smoking History Smoking history: Never smoked Have you smoked in the past 12 months: No - Social History ADL: Independent History of Recent Travel: No Home Medications - Allergies Allergies/Adverse Reactions: Allergies Allergy/AdvReac Type Severity Reaction Status Date / Time No Known Allergies Allergy Verified 03/20/18 18:54 - Home Medications Home Medications: Ambulatory Orders Ubidecarenone/Vit E Acet [Co Q-10 100 mg Softgel] 1 each PO DAILY 02/14/12 Budesonide/Formeterol Fumarate [SYMBICORT 80/4.5mcg -] 1 inh PO DAILY 01/21/14 Cholecalciferol (Vitamin D3) [Vitamin D-3] 2,000 units PO DAILY 01/21/14 Metoprolol Succinate [Toprol XL -] 25 mg PO DAILY 01/21/14 Hydrocodone Bit/Acetaminophen [Vicodin 5-500mg Tablet -] 1 - 2 tab PO Q6H PRN # 56 tablet 01/22/14 Family Disease History - Family Disease History Family History: Unable to Obtain Review of Systems Unable to obtain ROS, reason: Patient condition Physical Exam Vital Signs: Vital Signs Temperature 99.8 F H 03/23/18 14:37 Pulse Rate 22 L 03/23/18 14:37 Respiratory Rate 75 H 03/23/18 14:37 Blood Pressure 159/88 03/23/18 14:37 O2 Sat by Pulse Oximetry (%) 94 L 03/22/18 21:00 Constitutional: Yes: Calm Neck: Yes: WNL Cardiovascular: Yes: WNL Respiratory: Yes: Regular Gastrointestinal: Yes: Soft, Distention. No: Tenderness ...Rectal Exam: Yes: Other (+ stool) Neurological: Yes: Alert Labs: CBC, BMP 03/23/18 06:35 03/23/18 06:35 Imaging - Results X-ray: Report Reviewed, Image Reviewed Problem List - Problems (1) Ileus Code(s): K56.7 - ILEUS, UNSPECIFIED Assessment/Plan Abdominal distention Ileus Rectal tube placed- abdomen still distended- removed GI NG tube NPO Serial abdominal exams Enemas Correct electrolytes
--- NOTE | 2018-03-23 16:21 | CON.GI ---
Consult Consult Specialty:: GI Reason for Consultation:: distended abdomen - History of Present Illness History of Present Illness: Chart reviewed. Events noted. S/p COLD STRIP ROLLER shunt. Noted to have distended, firm abdomen and no BMs x 3 days. No nausea, vomiting, fever, pain reported. The pt appears to be comfortable. firm, distended abdoen on exam, non-tened, no guarding, or rigidity. BS rare, but present. Home medications include oxycodone. Opiates PRN post op written. Received oxycodone 5 mg this am. No electrolytes abnormalities. 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 Cardio/Vascular: Yes: HTN Pulmonary: Yes: Asthma Gastrointestinal: Yes: GERD - Past Surgical History Past Surgical History: Yes: Appendectomy - Alcohol/Substance Use Hx Alcohol Use: No History of Substance Use: reports: None - Smoking History Smoking history: Never smoked Have you smoked in the past 12 months: No - Social History ADL: Independent History of Recent Travel: No Home Medications - Allergies Allergies/Adverse Reactions: Allergies Allergy/AdvReac Type Severity Reaction Status Date / Time No Known Allergies Allergy Verified 03/20/18 18:54 - Home Medications Home Medications: Ambulatory Orders Ubidecarenone/Vit E Acet [Co Q-10 100 mg Softgel] 1 each PO DAILY 02/14/12 Budesonide/Formeterol Fumarate [SYMBICORT 80/4.5mcg -] 1 inh PO DAILY 01/21/14 Cholecalciferol (Vitamin D3) [Vitamin D-3] 2,000 units PO DAILY 01/21/14 Metoprolol Succinate [Toprol XL -] 25 mg PO DAILY 01/21/14 Hydrocodone Bit/Acetaminophen [Vicodin 5-500mg Tablet -] 1 - 2 tab PO Q6H PRN # 56 tablet 01/22/14 Family Disease History - Family Disease History Family History: Unremarkable Review of Systems Findings/Remarks: as per HPI, H&P, ED Physical Exam-GI Vital Signs: Vital Signs Temperature 99.8 F H 03/23/18 14:37 Pulse Rate 72 03/23/18 14:37 Respiratory Rate 22 03/23/18 14:37 Blood Pressure 159/88 03/23/18 14:37 O2 Sat by Pulse Oximetry (%) 94 L 03/22/18 21:00 Constitutional: Yes: No Distress, Calm Eyes: Yes: Conjunctiva Clear HENT: Yes: Atraumatic Neck: Yes: Supple Cardiovascular: Yes: Regular Rate and Rhythm Respiratory: Yes: Regular Gastrointestinal Inspection: Yes: Distention ...Auscultate: Yes: Hypoactive Bowel Sounds ...Palpate: No: Firm/Rigid, Guarding, Mass, Soft, Tenderness ...Percussion: Yes: Tympanitic Neurological: Yes: Alert Labs: CBC, BMP 03/23/18 06:35 03/23/18 06:35 INR, PTT INR 1.02 (0.82-1.09) 03/22/18 06:45 Laboratory Last Values WBC 10.7 K/mm3 (4.0-10.0) H D 03/23/18 06:35 RBC 4.18 M/mm3 (4.00-5.60) 03/23/18 06:35 Hgb 13.6 GM/dL (11.7-16.9) D 03/23/18 06:35 Hct 39.4 % (35.4-49) 03/23/18 06:35 MCV 94.2 fl (80-96) 03/23/18 06:35 MCH 32.5 pg (25.7-33.7) 03/23/18 06:35 MCHC 34.5 g/dl (32.0-35.9) 03/23/18 06:35 RDW 13.1 % (11.9-15.9) 03/23/18 06:35 Plt Count 179 K/MM3 (134-434) 03/23/18 06:35 MPV 8.6 fl (7.5-11.1) 03/23/18 06:35 Absolute Neuts (auto) 3.7 # 03/22/18 06:00 Neutrophils % 60.0 % (42.8-82.8) 03/22/18 06:00 Lymphocytes % 20.4 % (8-40) D 03/22/18 06:00 Monocytes % 12.5 % (3.8-10.2) H 03/22/18 06:00 Eosinophils % 6.7 % (0-4.5) H 03/22/18 06:00 Basophils % 0.4 % (0-2.0) 03/22/18 06:00 Nucleated RBC % 0 % (0-0) 03/22/18 06:00 PT with INR 11.50 SEC (9.7-13.0) 03/22/18 06:45 INR 1.02 (0.82-1.09) 03/22/18 06:45 Sodium 140 mmol/L (136-145) 03/23/18 06:35 Potassium 3.6 mmol/L (3.5-5.1) 03/23/18 06:35 Chloride 105 mmol/L (98-107) 03/23/18 06:35 Carbon Dioxide 26 mmol/L (21-32) 03/23/18 06:35 Anion Gap 9 (8-16) 03/23/18 06:35 BUN 16 mg/dL (7-18) 03/23/18 06:35 Creatinine 1.0 mg/dL (0.7-1.3) 03/23/18 06:35 Creat Clearance w eGFR > 60 (>60) 03/21/18 07:30 Random Glucose 97 mg/dL (74-106) 03/23/18 06:35 Calcium 8.8 mg/dL (8.5-10.1) 03/23/18 06:35 Total Bilirubin 0.5 mg/dL (0.2-1.0) 03/21/18 07:30 AST 15 U/L (15-37) 03/21/18 07:30 ALT 28 U/L (12-78) 03/21/18 07:30 Alkaline Phosphatase 79 U/L (45-117) 03/21/18 07:30 Troponin I < 0.02 ng/ml (0.00-0.05) 03/20/18 21:35 Total Protein 7.1 g/dl (6.4-8.2) 03/21/18 07:30 Albumin 3.8 g/dl (3.4-5.0) 03/21/18 07:30 Urine Color Ltyellow 03/21/18 21:00 Urine Appearance Clear 03/21/18 21:00 Urine pH 7.0 (5.0-8.0) 03/21/18 21:00 Ur Specific [place] 1.012 (1.001-1.035) 03/21/18 21:00 Urine Protein Negative (NEGATIVE) 03/21/18 21:00 Urine Glucose (UA) Negative (NEGATIVE) 03/21/18 21:00 Urine Ketones Negative (NEGATIVE) 03/21/18 21:00 Urine Blood Negative (NEGATIVE) 03/21/18 21:00 Urine Nitrite Negative (NEGATIVE) 03/21/18 21:00 Urine Bilirubin Negative (<2.0 mg/dL) 03/21/18 21:00 Urine Urobilinogen Negative mg/dL (0.2-1.0) 03/21/18 21:00 Ur Leukocyte Esterase Negative (NEGATIVE) 03/21/18 21:00 Problem List - Problems (1) Constipation due to opioid therapy Code(s): K59.03 - DRUG INDUCED CONSTIPATION; T40.2X5A - ADVERSE EFFECT OF OTHER OPIOIDS, INITIAL ENCOUNTER (2) Constipation by delayed colonic transit Code(s): K59.01 - SLOW TRANSIT CONSTIPATION (3) Ileus Code(s): K56.7 - ILEUS, UNSPECIFIED Assessment/Plan post op ileus aggravated by opiates. May also have stool impaction. D/C opiates. 2 tap water enemas. Relistore x 1. Obtain CT a/p w/o if no improvement and NGT/RT if becomes symptomatic. Bowel rest today.
[2018-03-23] MEDS: Methylnaltrexone Bromide 12 MG/0.6 ML KIT SQ SCH (18:39)
[2018-03-23] MEDS: DEXTROSE 5%-0.45% SALINE 1,000 ML IV SCH (20:54)
[2018-03-24] MEDS: HEPARIN NA (PORCINE) 5,000 UNITS/ML 1ML VIAL SQ SCH ×3 (05:53→23:27)
[2018-03-24] MEDS: ACETAMINOPHEN 325 MG TABLET (FP) PO PRN (05:53)
[2018-03-24 08:14] LABS: BASO % 0.4 % (0-2.0); EOS % 0.3 % (0-4.5); HEMATOCRIT 37.8 % (35.4-49); HEMOGLOBIN 13.3 GM/dL (11.7-16.9); LYMPH % 10.1 % (8-40); MCH 32.7 pg (25.7-33.7); MCHC 35.1 g/dl (32.0-35.9); MEAN CELL VOLUME 93.2 fl (80-96); MEAN PLT VOLUME 8.3 fl (7.5-11.1); MONO % 13.3 % (3.8-10.2); NEUT % 75.9 % (42.8-82.8); PLATELET COUNT 164 K/MM3 (134-434); RBC 4.06 M/mm3 (4.00-5.60); RDW 13.1 % (11.9-15.9); WHITE BLOOD COUNT 10.1 K/mm3 (4.0-10.0)
[2018-03-24 08:39] LABS: ALBUMIN 3.6 g/dl (3.4-5.0); ALK PHOS 66 U/L (45-117); ANION GAP 7 (8-16); BILIRUBIN,TOTAL 0.9 mg/dL (0.2-1.0); BLOOD UREA NITROGEN 12 mg/dL (7-18); CALCIUM 8.5 mg/dL (8.5-10.1); CHLORIDE 105 mmol/L (98-107); CO2 25 mmol/L (21-32); CREATININE 0.8 mg/dL (0.7-1.3); GLUCOSE,RANDOM 99 mg/dL (74-106); POTASSIUM 3.5 mmol/L (3.5-5.1); SGOT/AST 26 U/L (15-37); SGPT/ALT 25 U/L (12-78); SODIUM 137 mmol/L (136-145); TOT PROT 6.8 g/dl (6.4-8.2)
[2018-03-24] MEDS ORDERED: PT OWN MED DRAWER 7, Y5N ONE ×2 (09:53→21:08)
[2018-03-24] MEDS: PANTOPRAZOLE 20 MG TABLET (FP) PO SCH (09:56)
[2018-03-24] MEDS: POLYETHYLENE GLYCOL 3350 119 GM BTL PO SCH (09:56)
[2018-03-24] MEDS: ASPIRIN 81 MG CHEWABLE TABLETS PO SCH ×2 (09:56→23:28)
[2018-03-24] MEDS: metoPROLOL SUCCINATE 25 MG TAB.SR.24H (FP) PO SCH (09:56)
[2018-03-24] MEDS: Methylnaltrexone Bromide 12 MG/0.6 ML KIT SQ SCH ×2 (10:00→14:46)
[2018-03-24] MEDS ORDERED: POLYETHYLENE GLYCOL 3350 119 GM BTL PO SCH (10:00)
[2018-03-24] MEDS: BUDESONIDE/FORMETEROL FUMARATE 80/4.5 mcg INHALER IH SCH ×2 (10:57→23:28)
[2018-03-24] MEDS ORDERED: ONDANSETRON 4 MG/2 ML VIAL IVPUSH PRN (14:19)
--- NOTE | 2018-03-24 16:35 | PN ---
Progress Note, Physician History of Present Illness: Had some BMs after tap water enemas yesterday. NGT in place, 100 cc. Abdomen's distended, but soft. +BS. The pt appears comfortable. Reports no nausea, or pain - Current Medication List Current Medications: Active Medications Acetaminophen (Tylenol -) 650 mg PO Q4H PRN PRN Reason: MODERATE PAIN Last Admin: 03/24/18 05:53 Dose: 650 mg Aspirin (Asa -) 81 mg PO BID [facility] Last Admin: 03/24/18 09:56 Dose: Not Given Budesonide/Formoterol Fumarate (Symbicort 80/4.5mcg -) 2 puff IH BID [facility] Last Admin: 03/24/18 10:57 Dose: 2 puff Heparin Sodium (Porcine) (Heparin -) 5,000 unit SQ TID [facility] Last Admin: 03/24/18 14:40 Dose: 5,000 unit Dextrose/Sodium Chloride (D5-1/2ns -) 1,000 mls @ 75 mls/hr IV ASDIR [facility] Last Admin: 03/23/18 20:54 Dose: 75 mls/hr Methylnaltrexone [place] (Relistor -) 12 mg SQ DAILY [facility] Last Admin: 03/24/18 14:46 Dose: 12 mg Metoprolol Succinate (Toprol Xl -) 25 mg PO DAILY [facility] Last Admin: 03/24/18 09:56 Dose: Not Given Ondansetron HCl (Zofran Injection) 4 mg IVPUSH Q4H PRN PRN Reason: NAUSEA AND/OR VOMITING Pantoprazole Sodium (Protonix -) 20 mg PO DAILY [facility] Last Admin: 03/24/18 09:56 Dose: Not Given Polyethylene Glycol (Miralax (For Daily Use) -) 17 gm PO DAILY [facility] Last Admin: 03/24/18 09:56 Dose: Not Given - Objective Vital Signs: Vital Signs Temperature 99.6 F 03/24/18 15:43 Pulse Rate 84 03/24/18 15:43 Respiratory Rate 18 03/24/18 15:43 Blood Pressure 164/92 03/24/18 15:43 O2 Sat by Pulse Oximetry (%) 95 03/23/18 10:00 Labs: CBC, BMP 03/24/18 07:30 03/24/18 07:30 INR, PTT INR 1.02 (0.82-1.09) 03/22/18 06:45 Problem List - Problems (1) Constipation due to opioid therapy Code(s): K59.03 - DRUG INDUCED CONSTIPATION; T40.2X5A - ADVERSE EFFECT OF OTHER OPIOIDS, INITIAL ENCOUNTER (2) Constipation by delayed colonic transit Code(s): K59.01 - SLOW TRANSIT CONSTIPATION (3) Ileus Code(s): K56.7 - ILEUS, UNSPECIFIED Assessment/Plan post op ileus aggravated by opiates. May also have stool impaction. Repeat 2 tap water enemas. Relistore x 1. Obtain CT a/p w/o if no improvement.
--- NOTE | 2018-03-24 17:13 | PN ---
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 Valve pressure setting checked and found to be correct at 1.5. Ileus and treatment noted. Patient had repeat Head CT today which looks good. No suggestion of Subdural hematoma. The intracranial air ( consistent with surgery) is resolving and is not of concern. Will follow his progress and consider increasing drainage (changing valve setting) at a later date. Although he may require additional drainage to achieve benefits of shunting, aggressive and early drainage increases the risk of subdural hematoma. Patient may persist at this level of functioning, as was his presentation, for some time and although he does not require inpatient hospitalization solely due to his shunt surgery, he may not have been functioning well or safely prior to admission and he may benefit from SNF or rehab after his ileus clears. I would not recommend increasing drainage at this time.
[2018-03-24] MEDS ORDERED: ACETAMINOPHEN 1000 MG/100 ML VIAL (NON FORMULARY) IVPB ONE (18:30)
--- NOTE | 2018-03-24 19:06 | PN ---
Progress Note (short form) - Note Progress Note: No abdominal pain Given Relistor and tap water enemas Small BM Abdomen still distended but no discomfort NG tube placed AVSS Abd distended, no tenderness AXR- dilated, distended bowel Continue NG tube Relistor Continue enemas NPO Stop opiates CT A/P with PO gastrograffin if doesnt improve Problem List - Problems (1) Ileus Code(s): K56.7 - ILEUS, UNSPECIFIED
[2018-03-24 19:35] LABS: BASO % 0.2 % (0-2.0); EOS % 0.1 % (0-4.5); HEMATOCRIT 39.2 % (35.4-49); HEMOGLOBIN 13.5 GM/dL (11.7-16.9); LYMPH % 10.4 % (8-40); MCH 32.3 pg (25.7-33.7); MCHC 34.5 g/dl (32.0-35.9); MEAN CELL VOLUME 93.5 fl (80-96); MEAN PLT VOLUME 8.5 fl (7.5-11.1); MONO % 12.1 % (3.8-10.2); NEUT % 77.2 % (42.8-82.8); PLATELET COUNT 169 K/MM3 (134-434); RBC 4.19 M/mm3 (4.00-5.60); RDW 13.1 % (11.9-15.9); WHITE BLOOD COUNT 9.8 K/mm3 (4.0-10.0)
[2018-03-24] MEDS ORDERED: PIPERACILLIN/TAZOBACTAM 3.375 GM VIAL IVPB ONE (21:08)
[2018-03-24] MEDS ORDERED: DEXTROSE 5%-WATER 100 ML IVPB ONE (21:09)
[2018-03-24] MEDS: PIPERACILLIN/TAZOB 3.375 GM 3.375 GM in DEXTROSE 5%-WATER 100 ML IVPB SCH ×2 (21:49→23:29)
[2018-03-24] MEDS: DEXTROSE 5%-0.45% SALINE 1,000 ML IV SCH (23:28)
[2018-03-25] MEDS ORDERED: PIPERACILLIN/TAZOBACTAM 3.375 GM VIAL IVPB ONE ×4 (01:17→22:10)
[2018-03-25] MEDS ORDERED: DEXTROSE 5%-WATER 100 ML IVPB ONE (01:18)
[2018-03-25] MEDS: ACETAMINOPHEN 325 MG TABLET (FP) PO PRN (05:00)
[2018-03-25] MEDS: HEPARIN NA (PORCINE) 5,000 UNITS/ML 1ML VIAL SQ SCH ×3 (05:01→23:05)
[2018-03-25] MEDS: PIPERACILLIN/TAZOB 3.375 GM 3.375 GM in DEXTROSE 5%-WATER 100 ML IVPB SCH ×2 (05:01→12:19)
[2018-03-25] MEDS ORDERED: ACETAMINOPHEN 1000 MG/100 ML VIAL (NON FORMULARY) IVPB PRN (11:06)
--- NOTE | 2018-03-25 11:09 | PN ---
Progress Note, Physician History of Present Illness: F/U: S/p shunt ; MS improving ; some confusion was noted yesterday per RN. 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 Valve pressure setting checked and found to be correct at 1.5. Ileus and treatment noted. Patient had repeat Head CT today which looks good. No suggestion of Subdural hematoma. The intracranial air ( consistent with surgery) is resolving and is not of concern. Will follow his progress and consider increasing drainage (changing valve setting) at a later date. On exam: A & O X3 CN: 2-12 int M: 5/ all S: LT/PP int DTR Kjs 3+ othervise 2+ G: Deferred A/P: Hydrocephalus s/p shunt ; repeat CTH -ve PT/OT fall precautions F/U w neusx f/u op Health maintenance per primary team. Thx William Grady MD - Current Medication List Current Medications: Active Medications Acetaminophen (Tylenol -) 650 mg PO Q4H PRN PRN Reason: MODERATE PAIN Last Admin: 03/25/18 05:00 Dose: 650 mg Aspirin (Asa -) 81 mg PO BID [facility] Last Admin: 03/24/18 23:28 Dose: 81 mg Budesonide/Formoterol Fumarate (Symbicort 80/4.5mcg -) 2 puff IH BID [facility] Last Admin: 03/24/18 23:28 Dose: 2 puff Heparin Sodium (Porcine) (Heparin -) 5,000 unit SQ TID [facility] Last Admin: 03/25/18 05:01 Dose: 5,000 unit Dextrose/Sodium Chloride (D5-1/2ns -) 1,000 mls @ 75 mls/hr IV ASDIR [facility] Last Admin: 03/24/18 23:28 Dose: Not Given Piperacillin Sod/Tazobactam (Sod 3.375 gm/ Dextrose) 100 mls @ 200 mls/hr IVPB Q6H-IV [facility] Methylnaltrexone [place] (Relistor -) 12 mg SQ DAILY [facility] Last Admin: 03/24/18 14:46 Dose: 12 mg Metoprolol Succinate (Toprol Xl -) 25 mg PO DAILY [facility] Last Admin: 03/24/18 09:56 Dose: Not Given Ondansetron HCl (Zofran Injection) 4 mg IVPUSH Q4H PRN PRN Reason: NAUSEA AND/OR VOMITING Pantoprazole Sodium (Protonix -) 20 mg PO DAILY [facility] Last Admin: 03/24/18 09:56 Dose: Not Given Polyethylene Glycol (Miralax (For Daily Use) -) 17 gm PO DAILY [facility] Last Admin: 03/24/18 09:56 Dose: Not Given - Objective Vital Signs: Vital Signs Temperature 101.3 F H 03/25/18 05:12 Pulse Rate 72 03/25/18 05:12 Respiratory Rate 20 03/25/18 05:12 Blood Pressure 156/76 03/25/18 05:12 O2 Sat by Pulse Oximetry (%) 95 03/24/18 21:00 Labs: CBC, BMP 03/24/18 19:05 03/24/18 07:30 INR, PTT INR 1.02 (0.82-1.09) 03/22/18 06:45
--- NOTE | 2018-03-25 11:18 | PN ---
Progress Note (short form) - Note Progress Note: Patient speaking on the phone in full and clear sentences. Appears that mental status is improving. Wounds are clean, dry and intact. Ileus under treatment. No acute Neurosurgery issues. Patient can continue with treatment for ileus and may be discharged when medically clear.
[2018-03-25] MEDS ORDERED: PT OWN MED DRAWER 7, Y5N ONE ×3 (11:54→22:10)
[2018-03-25] MEDS ORDERED: PIPERACILLIN/TAZOB 3.375 GM 3.375 GM in DEXTROSE 5%-WATER - 50 ML IVPB SCH (12:00)
[2018-03-25] MEDS ORDERED: DEXTROSE 5%-WATER - 50 ML IVPB ONE ×3 (12:14→22:10)
--- NOTE | 2018-03-25 12:14 | PN ---
Progress Note, Physician History of Present Illness: pt more alert but still confused temp 101 still no evidence of infcc bm x 2 last pm wd site clean abd less distended ngt intact - Current Medication List Current Medications: Active Medications Acetaminophen (Tylenol -) 650 mg PO Q4H PRN PRN Reason: MODERATE PAIN Last Admin: 03/25/18 05:00 Dose: 650 mg Acetaminophen (Ofirmev Injection -) 1,000 mg IVPB Q6H PRN PRN Reason: FEVER Aspirin (Asa -) 81 mg PO BID [facility] Last Admin: 03/24/18 23:28 Dose: 81 mg Budesonide/Formoterol Fumarate (Symbicort 80/4.5mcg -) 2 puff IH BID [facility] Last Admin: 03/24/18 23:28 Dose: 2 puff Heparin Sodium (Porcine) (Heparin -) 5,000 unit SQ TID [facility] Last Admin: 03/25/18 05:01 Dose: 5,000 unit Dextrose/Sodium Chloride (D5-1/2ns -) 1,000 mls @ 75 mls/hr IV ASDIR [facility] Last Admin: 03/24/18 23:28 Dose: Not Given Piperacillin Sod/Tazobactam (Sod 3.375 gm/ Dextrose) 100 mls @ 200 mls/hr IVPB Q6H-IV DEBRA Piperacillin Sod/Tazobactam (Sod 3.375 gm/ Dextrose) 50 mls @ 200 mls/hr IVPB Q6H-IV DEBRA Stop: 03/25/18 12:14 Methylnaltrexone [place] (Relistor -) 12 mg SQ DAILY [facility] Last Admin: 03/24/18 14:46 Dose: 12 mg Metoprolol Succinate (Toprol Xl -) 25 mg PO DAILY [facility] Last Admin: 03/24/18 09:56 Dose: Not Given Ondansetron HCl (Zofran Injection) 4 mg IVPUSH Q4H PRN PRN Reason: NAUSEA AND/OR VOMITING Pantoprazole Sodium (Protonix -) 20 mg PO DAILY [facility] Last Admin: 03/24/18 09:56 Dose: Not Given Polyethylene Glycol (Miralax (For Daily Use) -) 17 gm PO DAILY [facility] Last Admin: 03/24/18 09:56 Dose: Not Given - Objective Vital Signs: Vital Signs Temperature 101.3 F H 03/25/18 05:12 Pulse Rate 72 03/25/18 05:12 Respiratory Rate 20 03/25/18 05:12 Blood Pressure 156/76 03/25/18 05:12 O2 Sat by Pulse Oximetry (%) 95 03/24/18 21:00 Constitutional: Yes: No Distress, Calm Eyes: Yes: WNL HENT: Yes: WNL Neck: Yes: WNL Cardiovascular: Yes: Regular Rate and Rhythm Respiratory: Yes: WNL Gastrointestinal: Yes: Hypoactive Bowel Sounds, Other (distended less) ...Rectal Exam: Yes: Deferred Genitourinary: Yes: WNL Breast(s): Yes: WNL Musculoskeletal: Yes: WNL Extremities: Yes: WNL Edema: No Peripheral Pulses WNL: Yes Integumentary: Yes: WNL Wound/Incision: Yes: Clean/Dry Neurological: Yes: Confusion ...Motor Strength: WNL Psychiatric: Yes: WNL Labs: CBC, BMP 03/24/18 19:05 03/24/18 07:30 INR, PTT INR 1.02 (0.82-1.09) 03/22/18 06:45 Problem List - Problems (1) Falls Code(s): W19.XXXA - UNSPECIFIED FALL, INITIAL ENCOUNTER Assessment/Plan id to see pt cxr today sx f/u today chk labs in am do sle speech protocol oob
[2018-03-25] MEDS: ASPIRIN 81 MG CHEWABLE TABLETS PO SCH ×2 (12:20→22:49)
[2018-03-25] MEDS: PANTOPRAZOLE 20 MG TABLET (FP) PO SCH (12:20)
[2018-03-25] MEDS: POLYETHYLENE GLYCOL 3350 119 GM BTL PO SCH (12:20)
[2018-03-25] MEDS: BUDESONIDE/FORMETEROL FUMARATE 80/4.5 mcg INHALER IH SCH ×2 (12:21→23:03)
[2018-03-25] MEDS: Methylnaltrexone Bromide 12 MG/0.6 ML KIT SQ SCH (12:21)
[2018-03-25] MEDS: metoPROLOL SUCCINATE 25 MG TAB.SR.24H (FP) PO SCH (12:22)
[2018-03-25 13:25] LABS: ANION GAP 8 (8-16); CALCIUM 8.4 mg/dL (8.5-10.1); CHLORIDE 102 mmol/L (98-107); CO2 29 mmol/L (21-32); CREATININE 0.9 mg/dL (0.7-1.3); GLUCOSE,RANDOM 111 mg/dL (74-106); POTASSIUM 3.5 mmol/L (3.5-5.1); SODIUM 139 mmol/L (136-145)
[2018-03-25 13:29] LABS: BLOOD UREA NITROGEN 10 mg/dL (7-18)
[2018-03-25] MEDS ORDERED: ACETAMINOPHEN 650 MG SUPP.RECT PR PRN (13:35)
[2018-03-25] MEDS: PIPERACILLIN/TAZOB 3.375 GM 3.375 GM in DEXTROSE 5%-WATER - 50 ML IVPB SCH ×2 (17:18→23:04)
--- NOTE | 2018-03-25 17:34 | PN ---
Progress Note (short form) - Note Progress Note: ID consult dictated imp/reccd 77 year old man admitted 03/20 with frequent falls and worsening memory found to have NPH and he underwent SHEET HANGER shunt placement 03/22 since 03/24 he has been having fevers also with ileus and constipation- +NGT no pain quite alert but with lowgrade fever post op fever-s/p SHEET HANGER shunt ileus would consider ct scan abd/pelvis continue zosyn f/u neurosurgery f/u GI Problem List - Problems (1) Postoperative fever Code(s): R50.82 - POSTPROCEDURAL FEVER (2) S/P SHEET HANGER shunt Code(s): Z98.2 - PRESENCE OF CEREBROSPINAL FLUID DRAINAGE DEVICE (3) Ileus Code(s): K56.7 - ILEUS, UNSPECIFIED
--- NOTE | 2018-03-25 18:48 | CONS ---
INFECTIOUS DISEASE CONSULTATION REQUESTED BY: Dr. Artur Al DATE OF CONSULTATION: DATE OF DICTATION: 03/25/2018 HISTORY OF PRESENT ILLNESS: This is a 77-year-old man who was originally admitted on the . He lives alone. He was having frequent falls and memory issues. He had a workup done that included a head CT which showed marked dilatation of the ventricles. He was evaluated by Neurology and Neurosurgery. On the he underwent right occipital GIS MANAGER shunt placement. From the he has been having fevers as high as 101.3. He has had blood cultures drawn. He was started piperacillin/tazobactam yesterday. As well he developed abdominal distention, had abdominal x-ray that was consistent with an ileus. He was seen by both GI and Surgery. An NG tube was placed. He has had 2 enemas and had a small bowel movement yesterday. He continues to have the NG tube in place. I am asked to see him because he continues to have some intermittent fever. He is quite alert. He denies any pain. He has no headache. He has no abdominal pain. No nausea, vomiting, diarrhea or dysuria. As noted, he is still not moving his bowels. PHYSICAL EXAMINATION: Vital Signs: His current temperature is 100.1 orally. T-Max was 101.3. Blood pressure is 143/89. Pulse of 70. Respiratory rate is 18. He is saturating 95% on room air. HEENT: He is normocephalic. His eyes are anicteric. Neck: Supple. Lungs: Clear to auscultation. Heart: Regular rate and rhythm. Abdomen: Soft, nontender. His dressings are intact for his postoperative sites on his head as well as his abdomen. Abdomen is slightly distended. He has an NG in place and he has diminished bowel sounds, but his abdominal exam is nontender. Extremities: Without edema. STUDIES: His white count on the in the morning was 10.1; repeat was 9.8 with a hemoglobin of 13.5. BUN and creatinine are normal at 10 and 0.7 and 0.9. Blood cultures are pending. Chest x-ray is negative for infiltrate. Last chest x-ray showed a prominent mediastinum and a right shunt catheter as well as the NG tube. ASSESSMENT: In summary, this is a 77-year-old man with postoperative fever status post ventriculoperitoneal shunt and ileus. Would consider CAT scan of the abdomen and pelvis as recommended by GI. Would continue Zosyn at this time. Follow up with Neurosurgery and with GI. STEPHANIE VELASCO M.D. KATHARINE/[id number]
--- NOTE | 2018-03-25 20:35 | PN ---
Progress Note, Physician History of Present Illness: NGT in place, draining bilious fluid. Abdomen's no longer distended, soft. + BS. The pt appears comfortable. Reports no nausea, or pain. Spiking fevers - Current Medication List Current Medications: Active Medications Acetaminophen (Tylenol -) 650 mg PO Q4H PRN PRN Reason: MODERATE PAIN Last Admin: 03/25/18 05:00 Dose: 650 mg Acetaminophen (Tylenol Suppository -) 650 mg [place] Q6H PRN PRN Reason: FEVER > 100.4 Last Admin: 03/25/18 17:16 Dose: 650 mg Aspirin (Asa -) 81 mg PO BID [facility] Last Admin: 03/25/18 12:20 Dose: Not Given Budesonide/Formoterol Fumarate (Symbicort 80/4.5mcg -) 2 puff IH BID [facility] Last Admin: 03/25/18 12:21 Dose: 2 puff Heparin Sodium (Porcine) (Heparin -) 5,000 unit SQ TID [facility] Last Admin: 03/25/18 13:33 Dose: 5,000 unit Dextrose/Sodium Chloride (D5-1/2ns -) 1,000 mls @ 75 mls/hr IV ASDIR [facility] Last Admin: 03/24/18 23:28 Dose: Not Given Piperacillin Sod/Tazobactam (Sod 3.375 gm/ Dextrose) 50 mls @ 200 mls/hr IVPB Q6H-IV [facility] Last Admin: 03/25/18 17:18 Dose: 200 mls/hr Methylnaltrexone [place] (Relistor -) 12 mg SQ DAILY [facility] Last Admin: 03/25/18 12:21 Dose: 12 mg Metoprolol Succinate (Toprol Xl -) 25 mg PO DAILY [facility] Last Admin: 03/25/18 12:22 Dose: Not Given Ondansetron HCl (Zofran Injection) 4 mg IVPUSH Q4H PRN PRN Reason: NAUSEA AND/OR VOMITING Pantoprazole Sodium (Protonix -) 20 mg PO DAILY [facility] Last Admin: 03/25/18 12:20 Dose: Not Given Polyethylene Glycol (Miralax (For Daily Use) -) 17 gm PO DAILY [facility] Last Admin: 03/25/18 12:20 Dose: Not Given - Objective Vital Signs: Vital Signs Temperature 100.1 F H 03/25/18 17:12 Pulse Rate 70 03/25/18 17:12 Respiratory Rate 18 03/25/18 17:12 Blood Pressure 143/89 03/25/18 17:12 O2 Sat by Pulse Oximetry (%) 95 03/25/18 10:00 Constitutional: Yes: No Distress, Calm Eyes: Yes: Conjunctiva Clear HENT: Yes: Atraumatic Neck: Yes: Supple Respiratory: Yes: Regular Gastrointestinal: Yes: Soft. No: Distention, Tenderness Labs: CBC, BMP 03/24/18 19:05 03/25/18 12:45 INR, PTT INR 1.02 (0.82-1.09) 03/22/18 06:45 Laboratory Last Values WBC 9.8 K/mm3 (4.0-10.0) 03/24/18 19:05 RBC 4.19 M/mm3 (4.00-5.60) 03/24/18 19:05 Hgb 13.5 GM/dL (11.7-16.9) 03/24/18 19:05 Hct 39.2 % (35.4-49) 03/24/18 19:05 MCV 93.5 fl (80-96) 03/24/18 19:05 MCH 32.3 pg (25.7-33.7) 03/24/18 19:05 MCHC 34.5 g/dl (32.0-35.9) 03/24/18 19:05 RDW 13.1 % (11.9-15.9) 03/24/18 19:05 Plt Count 169 K/MM3 (134-434) 03/24/18 19:05 MPV 8.5 fl (7.5-11.1) 03/24/18 19:05 Absolute Neuts (auto) 7.5 # 03/24/18 19:05 Neutrophils % 77.2 % (42.8-82.8) 03/24/18 19:05 Lymphocytes % 10.4 % (8-40) 03/24/18 19:05 Monocytes % 12.1 % (3.8-10.2) H 03/24/18 19:05 Eosinophils % 0.1 % (0-4.5) 03/24/18 19:05 Basophils % 0.2 % (0-2.0) 03/24/18 19:05 Nucleated RBC % 0 % (0-0) 03/24/18 19:05 PT with INR 11.50 SEC (9.7-13.0) 03/22/18 06:45 INR 1.02 (0.82-1.09) 03/22/18 06:45 Sodium 139 mmol/L (136-145) 03/25/18 12:45 Potassium 3.5 mmol/L (3.5-5.1) 03/25/18 12:45 Chloride 102 mmol/L (98-107) 03/25/18 12:45 Carbon Dioxide 29 mmol/L (21-32) 03/25/18 12:45 Anion Gap 8 (8-16) 03/25/18 12:45 BUN 10 mg/dL (7-18) 03/25/18 12:45 Creatinine 0.9 mg/dL (0.7-1.3) 03/25/18 12:45 Creat Clearance w eGFR > 60 (>60) 03/25/18 12:45 Random Glucose 111 mg/dL (74-106) H 03/25/18 12:45 Calcium 8.4 mg/dL (8.5-10.1) L 03/25/18 12:45 Total Bilirubin 0.9 mg/dL (0.2-1.0) D 03/24/18 07:30 AST 26 U/L (15-37) D 03/24/18 07:30 ALT 25 U/L (12-78) 03/24/18 07:30 Alkaline Phosphatase 66 U/L (45-117) 03/24/18 07:30 Troponin I < 0.02 ng/ml (0.00-0.05) 03/20/18 21:35 Total Protein 6.8 g/dl (6.4-8.2) 03/24/18 07:30 Albumin 3.6 g/dl (3.4-5.0) 03/24/18 07:30 Urine Color Ltyellow 03/21/18 21:00 Urine Appearance Clear 03/21/18 21:00 Urine pH 7.0 (5.0-8.0) 03/21/18 21:00 Ur Specific [place] 1.012 (1.001-1.035) 03/21/18 21:00 Urine Protein Negative (NEGATIVE) 03/21/18 21:00 Urine Glucose (UA) Negative (NEGATIVE) 03/21/18 21:00 Urine Ketones Negative (NEGATIVE) 03/21/18 21:00 Urine Blood Negative (NEGATIVE) 03/21/18 21:00 Urine Nitrite Negative (NEGATIVE) 03/21/18 21:00 Urine Bilirubin Negative (<2.0 mg/dL) 03/21/18 21:00 Urine Urobilinogen Negative mg/dL (0.2-1.0) 03/21/18 21:00 Ur Leukocyte Esterase Negative (NEGATIVE) 03/21/18 21:00 Problem List - Problems (1) Constipation due to opioid therapy Code(s): K59.03 - DRUG INDUCED CONSTIPATION; T40.2X5A - ADVERSE EFFECT OF OTHER OPIOIDS, INITIAL ENCOUNTER (2) Constipation by delayed colonic transit Code(s): K59.01 - SLOW TRANSIT CONSTIPATION (3) Ileus Code(s): K56.7 - ILEUS, UNSPECIFIED Assessment/Plan ID Obtain CT a/p
[2018-03-25] MEDS: DEXTROSE 5%-0.45% SALINE 1,000 ML IV SCH (23:05)
[2018-03-26] MEDS ORDERED: PIPERACILLIN/TAZOBACTAM 3.375 GM VIAL IVPB ONE ×4 (01:25→20:57)
[2018-03-26] MEDS ORDERED: DEXTROSE 5%-WATER - 50 ML IVPB ONE ×4 (01:25→20:58)
[2018-03-26] MEDS: PIPERACILLIN/TAZOB 3.375 GM 3.375 GM in DEXTROSE 5%-WATER - 50 ML IVPB SCH ×5 (02:56→21:49)
[2018-03-26] MEDS: HEPARIN NA (PORCINE) 5,000 UNITS/ML 1ML VIAL SQ SCH ×3 (06:18→21:49)
[2018-03-26 07:29] LABS: BASO % 0.2 % (0-2.0); EOS % 1.7 % (0-4.5); HEMATOCRIT 37.9 % (35.4-49); HEMOGLOBIN 13.3 GM/dL (11.7-16.9); LYMPH % 11.8 % (8-40); MCH 32.3 pg (25.7-33.7); MCHC 35.1 g/dl (32.0-35.9); MEAN CELL VOLUME 91.9 fl (80-96); MEAN PLT VOLUME 8.4 fl (7.5-11.1); NEUT % 75.3 % (42.8-82.8); PLATELET COUNT 174 K/MM3 (134-434); RBC 4.13 M/mm3 (4.00-5.60); RDW 12.7 % (11.9-15.9); WHITE BLOOD COUNT 7.6 K/mm3 (4.0-10.0)
[2018-03-26 07:57] LABS: CHLORIDE 102 mmol/L (98-107); POTASSIUM 3.4 mmol/L (3.5-5.1); SODIUM 138 mmol/L (136-145)
[2018-03-26 08:12] LABS: ANION GAP 10 (8-16); BLOOD UREA NITROGEN 11 mg/dL (7-18); CALCIUM 8.4 mg/dL (8.5-10.1); CO2 26 mmol/L (21-32); CREATININE 0.9 mg/dL (0.7-1.3); GLUCOSE,RANDOM 102 mg/dL (74-106)
--- NOTE | 2018-03-26 10:18 | PN ---
Progress Note, Physician History of Present Illness: bm ok vss no temp sx to d/c? ngt start liq diet? - Current Medication List Current Medications: Active Medications Acetaminophen (Tylenol -) 650 mg PO Q4H PRN PRN Reason: MODERATE PAIN Last Admin: 03/25/18 05:00 Dose: 650 mg Acetaminophen (Tylenol Suppository -) 650 mg [place] Q6H PRN PRN Reason: FEVER > 100.4 Last Admin: 03/25/18 17:16 Dose: 650 mg Aspirin (Asa -) 81 mg PO BID [facility] Last Admin: 03/25/18 22:49 Dose: Not Given Budesonide/Formoterol Fumarate (Symbicort 80/4.5mcg -) 2 puff IH BID [facility] Last Admin: 03/25/18 23:03 Dose: 2 puff Heparin Sodium (Porcine) (Heparin -) 5,000 unit SQ TID [facility] Last Admin: 03/26/18 06:18 Dose: 5,000 unit Dextrose/Sodium Chloride (D5-1/2ns -) 1,000 mls @ 75 mls/hr IV ASDIR [facility] Last Admin: 03/25/18 23:05 Dose: Not Given Piperacillin Sod/Tazobactam (Sod 3.375 gm/ Dextrose) 50 mls @ 200 mls/hr IVPB Q6H-IV [facility] Last Admin: 03/26/18 02:56 Dose: 200 mls/hr Methylnaltrexone [place] (Relistor -) 12 mg SQ DAILY [facility] Last Admin: 03/25/18 12:21 Dose: 12 mg Metoprolol Succinate (Toprol Xl -) 25 mg PO DAILY [facility] Last Admin: 03/25/18 12:22 Dose: Not Given Ondansetron HCl (Zofran Injection) 4 mg IVPUSH Q4H PRN PRN Reason: NAUSEA AND/OR VOMITING Pantoprazole Sodium (Protonix -) 20 mg PO DAILY [facility] Last Admin: 03/25/18 12:20 Dose: Not Given Polyethylene Glycol (Miralax (For Daily Use) -) 17 gm PO DAILY [facility] Last Admin: 03/25/18 12:20 Dose: Not Given - Objective Vital Signs: Vital Signs Temperature 97.7 F 03/26/18 09:05 Pulse Rate 68 03/26/18 09:05 Respiratory Rate 20 03/26/18 09:05 Blood Pressure 159/87 03/26/18 09:05 O2 Sat by Pulse Oximetry (%) 95 03/25/18 21:00 Constitutional: Yes: No Distress Eyes: Yes: WNL HENT: Yes: WNL Neck: Yes: WNL Cardiovascular: Yes: WNL Respiratory: Yes: WNL Gastrointestinal: Yes: Distention, Hypoactive Bowel Sounds, Other (better) Genitourinary: Yes: WNL Breast(s): Yes: WNL Musculoskeletal: Yes: WNL Extremities: Yes: WNL Edema: No Peripheral Pulses WNL: Yes Integumentary: Yes: WNL Wound/Incision: Yes: Clean/Dry Neurological: Yes: Confusion ...Motor Strength: WNL Psychiatric: Yes: WNL Labs: CBC, BMP 03/26/18 06:20 03/26/18 06:20 INR, PTT INR 1.02 (0.82-1.09) 03/22/18 06:45 Problem List - Problems (1) Falls Code(s): W19.XXXA - UNSPECIFIED FALL, INITIAL ENCOUNTER Assessment/Plan [facility]
[2018-03-26] MEDS: POLYETHYLENE GLYCOL 3350 119 GM BTL PO SCH (10:19)
[2018-03-26] MEDS: ASPIRIN 81 MG CHEWABLE TABLETS PO SCH ×3 (10:20→21:49)
[2018-03-26] MEDS: Methylnaltrexone Bromide 12 MG/0.6 ML KIT SQ SCH (10:27)
[2018-03-26] MEDS: BUDESONIDE/FORMETEROL FUMARATE 80/4.5 mcg INHALER IH SCH ×2 (10:27→21:49)
[2018-03-26] MEDS: PANTOPRAZOLE 20 MG TABLET (FP) PO SCH ×2 (10:28→16:17)
[2018-03-26] MEDS: metoPROLOL SUCCINATE 25 MG TAB.SR.24H (FP) PO SCH ×2 (10:28→16:17)
--- NOTE | 2018-03-26 12:03 | PN ---
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 Patient states he was OOB with PT earlier this morning and accidentaly dislodged his NG tube. His last BM was on Monday. He denies any abdominal pain, N/V, CP, SOB, H/A fever or chills. He is feeling much better and would like to eat Vital Signs Temp 98.3 F 18 10:17 Pulse 65 03/26/18 10:17 Resp 20 03/26/18 10:17 BP 147/75 03/26/18 10:17 Pulse Ox 95 03/25/18 21:00 Intake & Output 03/25/18 03/26/18 03/26/18 23:59 11:59 23:59 Intake Total 850 50 Output Total 950 Balance -100 50 Intake: IV 750 D5-1/2Ns - 1,000 ml @ 75 750 mls/hr IV ASDIR DEBRA Rx#: [id number] IVPB 100 50 Oral 0 Output: Gastric Drainage 200 Urine 750 Void 750 Other: Voiding Method Urinal # Unmeasured Voids Void 1 1 Bowel Movement No No CBC, BMP 03/26/18 06:20 03/26/18 06:20 PE: A&O, NAD unlabored resp on RA face symmetrical with no evidence of facial droop, EOEM intact with no nystagmus or lid lag, normal speech. Dressing over right occipital area c/d/i with no evidence of d/c, surrounding tissues intact. ABD: obese, NT, ND no guarding or rebound tenderness throughout. dressing c/d/ i with no evidence of d/c and surrounding tissue intact. 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 1) Continue enemas 2) start clears today 3) OOB with assist as tolerated Evaluation and plan discussed with Dr. Reid Code(s): K56.7 - ILEUS, UNSPECIFIED (2) S/P HIGH SCHOOL TUTOR shunt Code(s): Z98.2 - PRESENCE OF CEREBROSPINAL FLUID DRAINAGE DEVICE <Shirlene Godinez - Last Filed: 03/26/18 13:25> - Problems (1) Ileus Code(s): K56.7 - ILEUS, UNSPECIFIED <Barney Reid - Last Filed: 03/26/18 21:21>
--- NOTE | 2018-03-26 12:41 | PN ---
Progress Note (short form) - Note Progress Note: no complaints ngt disclodged this am no vomiting no abdominal pain Vital Signs Period Temp Pulse Resp BP Sys/Nj Pulse Ox Last 24 Hr 97.7 F-100.2 F 65-75 18-20 138-159/75-89 95 cor-rrr lllungs clear abd soft, mildly distended, +bs, NT ext no edema CBC, BMP 03/26/18 06:20 03/26/18 06:20 Microbiology 03/24/18 19:14 Blood - Peripheral Venous Blood Culture - Preliminary NO GROWTH OBTAINED AFTER 24 HOURS, INCUBATION TO CONTINUE FOR 4 DAYS. 03/24/18 19:05 Blood - Peripheral Venous Blood Culture - Preliminary NO GROWTH OBTAINED AFTER 24 HOURS, INCUBATION TO CONTINUE FOR 4 DAYS. 03/23/18 21:45 Urine - Urine Clean Catch Urine Culture - Final NO GROWTH OBTAINED 03/21/18 21:00 Urine - Urine Clean Catch Urine Culture - Final NO GROWTH OBTAINED a/p post op fever-s/p EXECUTIVE ADMINISTRATIVE ASST shunt ileus f/u ct scan continue zosyn for now if remains afebrile and ct scan unremarkable, would d/c zosyn Problem List - Problems (1) Postoperative fever Code(s): R50.82 - POSTPROCEDURAL FEVER (2) S/P EXECUTIVE ADMINISTRATIVE ASST shunt Code(s): Z98.2 - PRESENCE OF CEREBROSPINAL FLUID DRAINAGE DEVICE (3) Ileus Code(s): K56.7 - ILEUS, UNSPECIFIED
--- NOTE | 2018-03-26 14:31 | PN ---
Progress Note, Physician History of Present Illness: CT report noted. NGT out. Abd. distended, soft. +BS. The pt appears comfortable. Reports no nausea, or pain. - Current Medication List Current Medications: Active Medications Acetaminophen (Tylenol -) 650 mg PO Q4H PRN PRN Reason: MODERATE PAIN Last Admin: 03/25/18 05:00 Dose: 650 mg Acetaminophen (Tylenol Suppository -) 650 mg [place] Q6H PRN PRN Reason: FEVER > 100.4 Last Admin: 03/25/18 17:16 Dose: 650 mg Aspirin (Asa -) 81 mg PO BID [facility] Last Admin: 03/26/18 10:20 Dose: Not Given Budesonide/Formoterol Fumarate (Symbicort 80/4.5mcg -) 2 puff IH BID [facility] Last Admin: 03/26/18 10:27 Dose: 2 puff Heparin Sodium (Porcine) (Heparin -) 5,000 unit SQ TID [facility] Last Admin: 03/26/18 06:18 Dose: 5,000 unit Dextrose/Sodium Chloride (D5-1/2ns -) 1,000 mls @ 75 mls/hr IV ASDIR [facility] Last Admin: 03/25/18 23:05 Dose: Not Given Piperacillin Sod/Tazobactam (Sod 3.375 gm/ Dextrose) 50 mls @ 200 mls/hr IVPB Q6H-IV [facility] Last Admin: 03/26/18 10:22 Dose: 200 mls/hr Methylnaltrexone [place] (Relistor -) 12 mg SQ DAILY [facility] Last Admin: 03/26/18 10:27 Dose: 12 mg Metoprolol Succinate (Toprol Xl -) 25 mg PO DAILY [facility] Last Admin: 03/26/18 10:28 Dose: Not Given Ondansetron HCl (Zofran Injection) 4 mg IVPUSH Q4H PRN PRN Reason: NAUSEA AND/OR VOMITING Pantoprazole Sodium (Protonix -) 20 mg PO DAILY [facility] Last Admin: 03/26/18 10:28 Dose: Not Given Polyethylene Glycol (Miralax (For Daily Use) -) 17 gm PO DAILY [facility] Last Admin: 03/26/18 10:19 Dose: Not Given - Objective Vital Signs: Vital Signs Temperature 98.3 F 03/26/18 10:17 Pulse Rate 65 06/18/18 10:17 Respiratory Rate 20 03/26/18 10:17 Blood Pressure 147/75 03/26/18 10:17 O2 Sat by Pulse Oximetry (%) 95 03/25/18 21:00 Constitutional: Yes: No Distress, Calm Gastrointestinal: Yes: Normal Bowel Sounds, Soft, Distention. No: Rectal Bleeding, Tenderness, Tenderness, Rebound, Vomiting Neurological: Yes: Alert Labs: CBC, BMP 03/26/18 06:20 03/26/18 06:20 INR, PTT INR 1.02 (0.82-1.09) 03/22/18 06:45 Laboratory Last Values WBC 7.6 K/mm3 (4.0-10.0) 03/26/18 06:20 RBC 4.13 M/mm3 (4.00-5.60) 03/26/18 06:20 Hgb 13.3 GM/dL (11.7-16.9) 03/26/18 06:20 Hct 37.9 % (35.4-49) 03/26/18 06:20 MCV 91.9 fl (80-96) 03/26/18 06:20 MCH 32.3 pg (25.7-33.7) 03/26/18 06:20 MCHC 35.1 g/dl (32.0-35.9) 03/26/18 06:20 RDW 12.7 % (11.9-15.9) 03/26/18 06:20 Plt Count 174 K/MM3 (134-434) 03/26/18 06:20 MPV 8.4 fl (7.5-11.1) 03/26/18 06:20 Absolute Neuts (auto) 5.7 # 03/26/18 06:20 Neutrophils % 75.3 % (42.8-82.8) 03/26/18 06:20 Lymphocytes % 11.8 % (8-40) 03/26/18 06:20 Monocytes % 11.0 % (3.8-10.2) H 03/26/18 06:20 Eosinophils % 1.7 % (0-4.5) D 03/26/18 06:20 Basophils % 0.2 % (0-2.0) 03/26/18 06:20 Nucleated RBC % 0 % (0-0) 03/26/18 06:20 PT with INR 11.50 SEC (9.7-13.0) 03/22/18 06:45 INR 1.02 (0.82-1.09) 03/22/18 06:45 Sodium 138 mmol/L (136-145) 03/26/18 06:20 Potassium 3.4 mmol/L (3.5-5.1) L 03/26/18 06:20 Chloride 102 mmol/L (98-107) 03/26/18 06:20 Carbon Dioxide 26 mmol/L (21-32) 03/26/18 06:20 Anion Gap 10 (8-16) 03/26/18 06:20 BUN 11 mg/dL (7-18) 03/26/18 06:20 Creatinine 0.9 mg/dL (0.7-1.3) 03/26/18 06:20 Creat Clearance w eGFR > 60 (>60) 03/26/18 06:20 Random Glucose 102 mg/dL (74-106) 03/26/18 06:20 Calcium 8.4 mg/dL (8.5-10.1) L 03/26/18 06:20 Total Bilirubin 0.9 mg/dL (0.2-1.0) D 03/24/18 07:30 AST 26 U/L (15-37) D 03/24/18 07:30 ALT 25 U/L (12-78) 03/24/18 07:30 Alkaline Phosphatase 66 U/L (45-117) 03/24/18 07:30 Troponin I < 0.02 ng/ml (0.00-0.05) 03/20/18 21:35 Total Protein 6.8 g/dl (6.4-8.2) 03/24/18 07:30 Albumin 3.6 g/dl (3.4-5.0) 03/24/18 07:30 Urine Color Ltyellow 03/21/18 21:00 Urine Appearance Clear 03/21/18 21:00 Urine pH 7.0 (5.0-8.0) 03/21/18 21:00 Ur Specific [place] 1.012 (1.001-1.035) 03/21/18 21:00 Urine Protein Negative (NEGATIVE) 03/21/18 21:00 Urine Glucose (UA) Negative (NEGATIVE) 06/13/18 21:00 Urine Ketones Negative (NEGATIVE) 03/21/18 21:00 Urine Blood Negative (NEGATIVE) 03/21/18 21:00 Urine Nitrite Negative (NEGATIVE) 03/21/18 21:00 Urine Bilirubin Negative (<2.0 mg/dL) 03/21/18 21:00 Urine Urobilinogen Negative mg/dL (0.2-1.0) 03/21/18 21:00 Ur Leukocyte Esterase Negative (NEGATIVE) 03/21/18 21:00 Problem List - Problems (1) Constipation due to opioid therapy Code(s): K59.03 - DRUG INDUCED CONSTIPATION; T40.2X5A - ADVERSE EFFECT OF OTHER OPIOIDS, INITIAL ENCOUNTER (2) Constipation by delayed colonic transit Code(s): K59.01 - SLOW TRANSIT CONSTIPATION (3) Ileus Code(s): K56.7 - ILEUS, UNSPECIFIED Assessment/Plan Clear liquid diet. Observe
--- NOTE | 2018-03-26 14:48 | CONSULT ---
Admitting History and Physical - Primary Care Physician PCP: Cristian Al - Admission History of Present Illness: V-P shunt placed. Selected Entries 03/23/18 03/23/18 03/24/18 10:00 14:37 06:00 Lunch 100% Wound Type [ S/P [employer] Right Abdomen] PLACEMENT SITE Temperature 100.8 F H 03/24/18 03/24/18 03/24/18 09:47 15:43 17:25 Lunch Wound Type [ Right Abdomen] Temperature 98.2 F 99.6 F 101 F H 03/24/18 03/25/18 03/25/18 19:04 03:00 05:12 Lunch Wound Type [ Right Abdomen] Temperature 100.1 F H 98.9 F 101.3 F H 03/25/18 03/25/18 03/25/18 09:00 16:05 17:12 Lunch Wound Type [ Right Abdomen] Temperature 99.6 F 100.2 F H 100.1 F H 03/25/18 03/26/18 03/26/18 21:00 02:00 06:00 Lunch Wound Type [ Right Abdomen] Temperature 98.8 F 99.9 F H 99.0 F 03/26/18 03/26/18 03/26/18 09:05 10:17 12:22 Lunch NPO Wound Type [ Right Abdomen] Temperature 97.7 F 98.3 F 03/26/18 14:29 Lunch Wound Type [ Right Abdomen] Temperature 98.9 F Laboratory Tests 03/23/18 03/24/18 03/26/18 06:35 07:30 06:20 WBC 10.7 H D 10.1 H 7.6 This is my first consult with this pt. Pt reports h/o difficulty swallowing, told to flex his head to swallow. He can not remember where or when he was told this. History Source: Patient, Medical Record - Past Medical History DIRECTOR STARS: Yes: Dementia Cardiovascular: Yes: HTN Pulmonary: Yes: Asthma Gastrointestinal: Yes: GERD - Past Surgical History Past Surgical History: Yes: Appendectomy - Smoking History Smoking history: Never smoked Have you smoked in the past 12 months: No - Alcohol/Substance Use Hx Alcohol Use: No History of Substance Use: reports: None - Social History ADL: Independent History of Recent Travel: No History - Admission Reason For Visit: RECURRENT FALLS / ALTERED MENTAL STATUS - Diagnostics X-ray: Report Reviewed - General Mental Status: Alert and Oriented, Awake and Alert, Able to Follow Commands, Forgetful Attention: Intact Ability to Follow Directions: Good Head/Neck Control: WFL - Hearing Hearing: Impaired Hearing Aide: No With Patient: No Speech Evaluation - Communication Primary Language: SYRIAC Communication: Yes: Within Normal Limits Oral Expression Ability: Yes: No Impairment - Speech Production Able to Make Needs Known: Yes: WNL Intelligibility: Yes: WNL - Speech Characteristics Voice Loudness: Mildly Soft/Quiet Voice Pitch: Yes: Normal Voice Phonatory-based Quality: Yes: Normal, Dysphonia (mild) Speech Pattern: Normal Speech Clarity: < 100% Nasal Resonance: Normal Articulation: Yes: Precise - Language/Auditory Comprehension Follows: Yes: 2 Stage Simple Commands - Language/Verbal Expression Able to Respond to Simple Queries: Yes: WNL Able to Communicate Wants and Needs: Yes: WNL Functional Communication Status: Yes: WNL - Swallow Evaluation/Bedside Assessment Current Nutritional Intake: Clear Liquids Dentition: Yes: Adequate Facial Symmetry at Rest: Symmetrical Facial Symmetry on Retraction: Symmetrical Facial Movement: Controlled Against Resistance Opening: Normal Against Resistance Closing: Normal Pucker Lips: Normal Smile: Normal Lingual Movement: Normal, Symmetric Lingual Speed of Movement: Normal Lingual Movement Strgth Against Opposition: Normal Lingual Movement Characteristics: Normal Velopharyngeal Movement: Normal Laryngeal Elevation: WFL Laryngeal Movement: Able to Palpate Rate of Intake: WFL Bolus Size: WFL Oral Prep Time: WFL A-P Transit: WFL Coughing/Throat Clear: Yes (occasional throat clearing) Recommendations - Speech Evaluation, Impression/Plan Impression: Occasional throat clearing. Reports h/o dysphagia? but could not remember details. - Dysphagia Impressions/Plan Dysphagia Impressions: Ongoing Evaluation *Silent aspiration: cannot be R/O at bedside Dysphagia Treatment Plan: Small Bites, Chin Tuck/Down, Safe Rate, 1/2 tsp. at a time, Elevate HOB during feed Recommendations: Modified Barium Swallow (if h/o dysphagia or signs of difficulty.), Other (Upgrade as tolerated. MBS if signs of dysphagia)
--- NOTE | 2018-03-26 16:28 | PN ---
Progress Note (short form) - Note Progress Note: Alert. Doing well. NGT out. Resting comfortably. passing flatus. No bm yet. Denies n/v/f/c, CP or SOB. Last Vital Signs Temp Pulse Resp BP Pulse Ox 98.9 F 72 20 144/81 95 03/26/18 14:29 03/26/18 16:13 03/26/18 16:13 03/26/18 16:13 03/25/18 21:00 CBC, BMP 03/26/18 06:20 03/26/18 06:20 Gen: nad ABD: soft. nt. nd. +bs x 4 quadrants Problem List - Problems (1) Ileus Assessment/Plan: Ileus resolved. K 3.4 --> replete Start clear liquids and advance as tolerated. Cont medical management Code(s): K56.7 - ILEUS, UNSPECIFIED
[2018-03-27] MEDS ORDERED: PIPERACILLIN/TAZOBACTAM 3.375 GM VIAL IVPB ONE ×3 (03:42→14:27)
[2018-03-27] MEDS ORDERED: DEXTROSE 5%-WATER - 50 ML IVPB ONE ×3 (03:42→14:28)
[2018-03-27] MEDS: PIPERACILLIN/TAZOB 3.375 GM 3.375 GM in DEXTROSE 5%-WATER - 50 ML IVPB SCH ×3 (03:51→14:30)
[2018-03-27] MEDS: HEPARIN NA (PORCINE) 5,000 UNITS/ML 1ML VIAL SQ SCH ×3 (06:12→21:11)
[2018-03-27] MEDS: DEXTROSE 5%-0.45% SALINE 1,000 ML IV SCH ×2 (06:15→20:28)
[2018-03-27 07:44] LABS: BASO % 0.5 % (0-2.0); EOS % 5.9 % (0-4.5); HEMATOCRIT 37.7 % (35.4-49); HEMOGLOBIN 13.1 GM/dL (11.7-16.9); MCH 32.4 pg (25.7-33.7); MCHC 34.8 g/dl (32.0-35.9); MEAN PLT VOLUME 8.1 fl (7.5-11.1); MONO % 14.1 % (3.8-10.2); NEUT % 61.5 % (42.8-82.8); PLATELET COUNT 172 K/MM3 (134-434); RBC 4.06 M/mm3 (4.00-5.60); RDW 12.8 % (11.9-15.9); WHITE BLOOD COUNT 5.5 K/mm3 (4.0-10.0)
[2018-03-27 08:21] LABS: CHLORIDE 104 mmol/L (98-107); POTASSIUM 3.8 mmol/L (3.5-5.1); SODIUM 140 mmol/L (136-145)
[2018-03-27 08:27] LABS: ANION GAP 8 (8-16); BLOOD UREA NITROGEN 9 mg/dL (7-18); CALCIUM 8.6 mg/dL (8.5-10.1); CO2 28 mmol/L (21-32); CREATININE 0.9 mg/dL (0.7-1.3); GLUCOSE,RANDOM 98 mg/dL (74-106)
[2018-03-27] MEDS ORDERED: PT OWN MED DRAWER 7, Y5N ONE ×3 (09:19→22:00)
[2018-03-27] MEDS: metoPROLOL SUCCINATE 25 MG TAB.SR.24H (FP) PO SCH (09:27)
[2018-03-27] MEDS: Methylnaltrexone Bromide 12 MG/0.6 ML KIT SQ SCH (09:27)
[2018-03-27] MEDS: PANTOPRAZOLE 20 MG TABLET (FP) PO SCH (09:27)
[2018-03-27] MEDS: POLYETHYLENE GLYCOL 3350 119 GM BTL PO SCH (09:28)
[2018-03-27] MEDS: BUDESONIDE/FORMETEROL FUMARATE 80/4.5 mcg INHALER IH SCH ×2 (09:28→21:11)
[2018-03-27] MEDS: ASPIRIN 81 MG CHEWABLE TABLETS PO SCH ×2 (09:32→21:11)
--- NOTE | 2018-03-27 09:47 | PN ---
Progress Note, Physician History of Present Illness: tolerating diet well vss temp? 99 ? advance ? d/c [facility] when ready - Current Medication List Current Medications: Active Medications Acetaminophen (Tylenol -) 650 mg PO Q4H PRN PRN Reason: MODERATE PAIN Last Admin: 03/25/18 05:00 Dose: 650 mg Acetaminophen (Tylenol Suppository -) 650 mg NC Q6H PRN PRN Reason: FEVER > 100.4 Last Admin: 03/25/18 17:16 Dose: 650 mg Aspirin (Asa -) 81 mg PO BID [facility] Last Admin: 03/27/18 09:32 Dose: 81 mg Budesonide/Formoterol Fumarate (Symbicort 80/4.5mcg -) 2 puff IH BID [facility] Last Admin: 03/27/18 09:28 Dose: 2 puff Heparin Sodium (Porcine) (Heparin -) 5,000 unit SQ TID [facility] Last Admin: 03/27/18 06:12 Dose: 5,000 unit Dextrose/Sodium Chloride (D5-1/2ns -) 1,000 mls @ 75 mls/hr IV ASDIR [facility] Last Admin: 03/27/18 06:15 Dose: 75 mls/hr Piperacillin Sod/Tazobactam (Sod 3.375 gm/ Dextrose) 50 mls @ 200 mls/hr IVPB Q6H-IV [facility] Last Admin: 03/27/18 09:27 Dose: 200 mls/hr Methylnaltrexone [place] (Relistor -) 12 mg SQ DAILY [facility] Last Admin: 03/27/18 09:27 Dose: 12 mg Metoprolol Succinate (Toprol Xl -) 25 mg PO DAILY [facility] Last Admin: 03/27/18 09:27 Dose: 25 mg Ondansetron HCl (Zofran Injection) 4 mg IVPUSH Q4H PRN PRN Reason: NAUSEA AND/OR VOMITING Pantoprazole Sodium (Protonix -) 20 mg PO DAILY [facility] Last Admin: 03/27/18 09:27 Dose: 20 mg Polyethylene Glycol (Miralax (For Daily Use) -) 17 gm PO DAILY [facility] Last Admin: 03/27/18 09:28 Dose: 17 grams - Objective Vital Signs: Vital Signs Temperature 99.0 F 03/27/18 06:00 Pulse Rate 61 03/27/18 06:00 Respiratory Rate 20 03/27/18 06:00 Blood Pressure 144/76 03/27/18 06:00 O2 Sat by Pulse Oximetry (%) 95 03/26/18 21:00 Constitutional: Yes: No Distress Eyes: Yes: WNL HENT: Yes: WNL Neck: Yes: WNL Cardiovascular: Yes: Regular Rate and Rhythm Respiratory: Yes: WNL Gastrointestinal: Yes: Other (less distanded) Genitourinary: Yes: WNL Breast(s): Yes: WNL Musculoskeletal: Yes: WNL Extremities: Yes: WNL Edema: No Peripheral Pulses WNL: Yes Integumentary: Yes: WNL Wound/Incision: Yes: Clean/Dry Neurological: Yes: Confusion ...Motor Strength: WNL Psychiatric: Yes: Other (oms) Labs: CBC, BMP 03/27/18 06:45 03/27/18 06:45 INR, PTT INR 1.02 (0.82-1.09) 03/22/18 06:45 Problem List - Problems (1) Falls Code(s): W19.XXXA - UNSPECIFIED FALL, INITIAL ENCOUNTER Assessment/Plan cont tx as is ? advace diet ? d/c later nh chk psa
--- NOTE | 2018-03-27 14:33 | PN ---
Progress Note (short form) - Note Progress Note: doing well no vomiting tolerating clears +BM Vital Signs Period Temp Pulse Resp BP Sys/Nj Pulse Ox Last 24 Hr 98 F-99.0 F 54-72 18-20 133-148/50-81 95 cor-rrr lungs clear abd firm nt +BS ext no edema ct scan noted no obstruction CBC, BMP 03/27/18 06:45 03/27/18 06:45 Microbiology 03/24/18 19:14 Blood - Peripheral Venous Blood Culture - Preliminary NO GROWTH OBTAINED AFTER 48 HOURS, INCUBATION TO CONTINUE FOR 3 DAYS. 03/24/18 19:05 Blood - Peripheral Venous Blood Culture - Preliminary NO GROWTH OBTAINED AFTER 48 HOURS, INCUBATION TO CONTINUE FOR 3 DAYS. 03/23/18 21:45 Urine - Urine Clean Catch Urine Culture - Final NO GROWTH OBTAINED 03/21/18 21:00 Urine - Urine Clean Catch Urine Culture - Final NO GROWTH OBTAINED a/p post op fever-s/p FRUIT TRIMMER shunt ileus d/c aosyn and observe Problem List - Problems (1) Postoperative fever Code(s): R50.82 - POSTPROCEDURAL FEVER (2) S/P FRUIT TRIMMER shunt Code(s): Z98.2 - PRESENCE OF CEREBROSPINAL FLUID DRAINAGE DEVICE (3) Ileus Code(s): K56.7 - ILEUS, UNSPECIFIED
--- NOTE | 2018-03-27 16:00 | PN ---
Progress Note (short form) - Note Progress Note: No new events No abdominal pain Tolerating clears Vital Signs Period Temp Pulse Resp BP Sys/Nj Pulse Ox Last 24 Hr 98 F-99.0 F 54-72 18-20 133-148/50-81 95-95 Abd soft, NT, ND Advance diet as tolerated Can discharge once tolerating soft diet Thank you Problem List - Problems (1) Ileus Code(s): K56.7 - ILEUS, UNSPECIFIED
[2018-03-28] MEDS: HEPARIN NA (PORCINE) 5,000 UNITS/ML 1ML VIAL SQ SCH (05:39)
[2018-03-28 07:01] LABS: BASO % 0.6 % (0-2.0); EOS % 6.4 % (0-4.5); HEMATOCRIT 35.1 % (35.4-49); HEMOGLOBIN 12.3 GM/dL (11.7-16.9); LYMPH % 17.4 % (8-40); MCH 32.9 pg (25.7-33.7); MCHC 35.2 g/dl (32.0-35.9); MEAN CELL VOLUME 93.5 fl (80-96); MEAN PLT VOLUME 8.1 fl (7.5-11.1); NEUT % 63.6 % (42.8-82.8); PLATELET COUNT 179 K/MM3 (134-434); RBC 3.75 M/mm3 (4.00-5.60); WHITE BLOOD COUNT 5.4 K/mm3 (4.0-10.0)
[2018-03-28 07:32] LABS: CHLORIDE 106 mmol/L (98-107); POTASSIUM 3.6 mmol/L (3.5-5.1); SODIUM 142 mmol/L (136-145)
[2018-03-28 07:38] LABS: ANION GAP 8 (8-16); BLOOD UREA NITROGEN 9 mg/dL (7-18); CALCIUM 7.9 mg/dL (8.5-10.1); CO2 28 mmol/L (21-32); CREATININE 0.9 mg/dL (0.7-1.3); GLUCOSE,RANDOM 103 mg/dL (74-106)
[2018-03-28 09:01] VITALS: BP 149/77; PULSE 56; TEMP 98.4
[2018-03-28] MEDS: BUDESONIDE/FORMETEROL FUMARATE 80/4.5 mcg INHALER IH SCH (09:34)
[2018-03-28] MEDS ORDERED: PT OWN MED DRAWER 7, Y5N ONE ×2 (09:40→11:45)
[2018-03-28] MEDS: POLYETHYLENE GLYCOL 3350 119 GM BTL PO SCH (09:41)
[2018-03-28] MEDS: metoPROLOL SUCCINATE 25 MG TAB.SR.24H (FP) PO SCH (09:41)
[2018-03-28] MEDS: PANTOPRAZOLE 20 MG TABLET (FP) PO SCH (09:41)
[2018-03-28] MEDS: ASPIRIN 81 MG CHEWABLE TABLETS PO SCH (09:41)
--- NOTE | 2018-03-28 11:20 | DS ---
Physical Examination Vital Signs: Vital Signs Temperature 98.4 F 03/28/18 09:01 Pulse Rate 56 L 03/28/18 09:01 Respiratory Rate 20 03/28/18 09:01 Blood Pressure 149/77 03/28/18 09:01 O2 Sat by Pulse Oximetry (%) 97 03/28/18 09:00 Constitutional: Yes: No Distress Eyes: Yes: WNL HENT: Yes: WNL Neck: Yes: WNL Cardiovascular: Yes: WNL Respiratory: Yes: WNL Gastrointestinal: Yes: Normal Bowel Sounds ...Rectal Exam: Yes: WNL Renal/: Yes: WNL Breast(s): Yes: WNL Musculoskeletal: Yes: WNL Extremities: Yes: WNL Edema: No Peripheral Pulses WNL: Yes Integumentary: Yes: WNL Wound/Incision: Yes: Clean/Dry Neurological: Yes: Confusion ...Motor Strength: WNL Psychiatric: Yes: WNL Labs: CBC, BMP 03/28/18 05:50 03/28/18 05:50 Discharge Summary Reason For Visit: RECURRENT FALLS / ALTERED MENTAL STATUS Current Active Problems Altered mental status (Acute) Constipation by delayed colonic transit (Acute) Constipation due to opioid therapy (Acute) Falls (Acute) Ileus (Acute) Postoperative fever (Acute) 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 No heavy lifting or exercise until seen by your surgeon. You may walk unlimited amounts and climb stairs. Wound Care Keep your incisions clean, dry and covered at all times. Apply an occlusive dressing (Saran wrap or Tegaderm) when showering to avoid getting your incision wet. Do not submerge incision or apply ointments or creams. After showering, remove dressing and apply clean dry dressing. The claire will be removed in the office in 10-14 days post-op. Diet There are no dietary restrictions. Eat healthy, high-fiber foods. Drink 6-8 glasses of liquid each day. This will assist in keeping your bowels regular. Pain Management You may take Tylenol or acetaminophen. Any pain prescription medication ordered should be taken as prescribed for moderate to severe pain. Call Dr Caraballo for any of the following: Severe pain not relieved by medication Fever of 101 or higher Excessive bleeding or drainage on dressing Inability to urinate Any chest pain or shortness of breath, seek Emergency Care. Call the office to confirm a post-operative appointment 7-10 days post-op Justin Alfaro MD [facility] [place] [address] Referrals: Cristian Al MD [Primary Care Provider] - Disposition: [facility] - Home Medications Comprehensive Discharge Medication List: Ambulatory Orders Budesonide/Formeterol Fumarate [SYMBICORT 80/4.5mcg -] 1 inh PO DAILY 01/21/14 Cholecalciferol (Vitamin D3) [Vitamin D-3] 2,000 units PO DAILY 01/21/14 Metoprolol Succinate [Toprol XL -] 25 mg PO DAILY 01/21/14 Aspirin [ASA -] 81 mg PO BID tab.chew 03/28/18 Budesonide/Formeterol Fumarate [SYMBICORT 80/4.5mcg -] 2 puff IH BID inhaler Metoprolol Succinate [Toprol XL -] 25 mg PO DAILY tab.sr.24h 03/28/18 Pantoprazole Sodium [Protonix -] 20 mg PO DAILY tablet.ec 03/28/18 Polyethylene Glycol 3350 [Miralax 119 gm Btl -] 17 gm PO DAILY bottle 03/28/18 neuro f/u x 2wks dr plata neuro sx pantoprozol metoprolol sybycort miralax po
== END 2018-03-28 11:47 | DRG 32 ==
LOC: JER 18:50 → JERBED 21:37 → J5S 03-21 00:58
PROVIDERS: ADMIT Family Medicine; ATTEND Family Medicine
PROC: 0D9670Z Drainage of Stomach with Drainage Device, Via Natural or Artificial Opening (ICD-10-PCS; 2018-03-22)
PROC: 00160J6 Bypass Cerebral Ventricle to Peritoneal Cavity with Synthetic Substitute, Open Approach (ICD-10-PCS; principal; 2018-03-22 12:00)
DX: G91.2 (Idiopathic) normal pressure hydrocephalus (principal); K91.30 Postprocedural intestinal obstruction, unspecified as to partial versus complete; F03.90 Unspecified dementia, unspecified severity, without behavioral disturbance, psychotic disturbance, mood disturbance, and anxiety; I10 Essential (primary) hypertension; J45.909 Unspecified asthma, uncomplicated; K21.9 Gastro-esophageal reflux disease without esophagitis; R35.0 Frequency of micturition; K42.9 Umbilical hernia without obstruction or gangrene; R14.0 Abdominal distension (gaseous); K59.01 Slow transit constipation; K59.03 Drug induced constipation; T40.0X5A Adverse effect of opium, initial encounter; Y83.8 Other surgical procedures as the cause of abnormal reaction of the patient, or of later complication, without mention of misadventure at the time of the procedure; R26.9 Unspecified abnormalities of gait and mobility; R50.82 Postprocedural fever; W18.30XA Fall on same level, unspecified, initial encounter; Y93.89 Activity, other specified; Y92.098 Other place in other non-institutional residence as the place of occurrence of the external cause
CPT/HCPCS: 36415; 70450-TC; 71045-TC-FY; 71046-TC-FY; 74018-TC-FY; 74019-TC-FY; 74177-TC; 80048; 80053; 81003; 84153; 84484; 85025; 85027; 85610; 87040; 87086; 93005; 93010; 94010; 94760; 97116-GP; 97162-GP; 99283-25; J0131; J1644

== ENCOUNTER 2018-06-07 18:02 | Inpatient (IN) | payer OTHER ==
--- NOTE | 2018-06-07 21:34 | PDOC ---
History of Present Illness - General Chief Complaint: Nausea Stated Complaint: SENT BY PCP Time Seen by Provider: 06/07/18 21:34 - History of Present Illness Initial Comments: 06/07/18 23:11 The patient is a 77 year old male with a history of HTN, Diverticulitis, Constipation who presents for evaluation of nausea. The patient notes a 2 week history of intermittent nausea with some occasional non-bilious, non-bloody vomiting. The patient notes that he is constipated at baseline and does not know when his last bowel movement was. Of note, the patient was admitted 2 months ago and developed an ileus after a v/p shunt procedure. He otherwise denies fevers, chills, SOB, chest pain, abdominal pain, or changes with urination or bowel movements. He states that he is currently asymptomatic. Past History - Past Medical History Allergies/Adverse Reactions: Allergies Allergy/AdvReac Type Severity Reaction Status Date / Time No Known Allergies Allergy Verified 06/07/18 18:27 Home Medications: Ambulatory Orders Budesonide/Formeterol Fumarate [SYMBICORT 80/4.5mcg -] 1 inh PO DAILY 01/21/14 Cholecalciferol (Vitamin D3) [Vitamin D-3] 2,000 units PO DAILY 01/21/14 Metoprolol Succinate [Toprol XL -] 25 mg PO DAILY 01/21/14 Aspirin [ASA -] 81 mg PO BID tab.chew 03/28/18 Budesonide/Formeterol Fumarate [SYMBICORT 80/4.5mcg -] 2 puff IH BID inhaler Metoprolol Succinate [Toprol XL -] 25 mg PO DAILY tab.sr.24h 03/28/18 Pantoprazole Sodium [Protonix -] 20 mg PO DAILY tablet.ec 03/28/18 Polyethylene Glycol 3350 [Miralax 119 gm Btl -] 17 gm PO DAILY bottle 03/28/18 Anemia: No Asthma: Yes Cancer: No Cardiac Disorders: No CVA: No COPD: No CHF: No DVT: No Dementia: Yes Diabetes: (HYPOGLYCEMIA) GI Disorders: Yes (DIVERTICULITIS) Disorders: No HTN: Yes Hypercholesterolemia: No Liver Disease: No Seizures: No Thyroid Disease: No - Surgical History Abdominal Surgery: Yes (HERNIA) Appendectomy: Yes Cardiac Surgery: No Cholecystectomy: No Lung Surgery: No Neurologic Surgery: No Orthopedic Surgery: No - Suicide/Smoking/Psychosocial Hx Smoking History: Never smoked Have you smoked in the past 12 months: No Information on smoking cessation initiated: No Hx Alcohol Use: No Drug/Substance Use Hx: No Substance Use Type: None Hx Substance Use Treatment: No Review of Systems - Review of Systems Comments:: 06/07/18 23:14 Constitutional: No fevers, chills, fatigue, malaise HEENT: No Rhinorrhea, nasal congestion, visual changes Cardiovascular: No chest pain, syncope, palpitations, lightheadedness Respiratory: No Cough, SOB, Hemoptysis, Gastrointestinal: Nausea, vomiting, constipation. No Abdominal pain, Diarrhea, Melena Genitourinary: No Dysuria, Frequency, Urgency, Hesitancy, Hematuria, Flank pain Musculoskeletal: No Myalgia, arthralgia Skin: No rashes, itching, bruising, pallor Neurologic: No Headache, Dizziness, Numbness, Weakness, or Tingling Psychiatric: No Hallucinations. No SI or HI *Physical Exam - Vital Signs Last Vital Signs Temp Pulse Resp BP Pulse Ox 99.0 F 78 20 158/88 95 06/07/18 18:27 06/07/18 18:27 06/07/18 18:27 06/07/18 18:27 06/07/18 18:27 - Physical Exam Comments: 06/07/18 23:14 General Appearance: Nourished. No Apparent Distress HEENT: No Pharyngeal Erythema, Tonsillar Exudate, Tonsillar Erythema Neck: No Cervical Lymphadenopathy Respiratory/Chest: Lungs Clear, Normal Breath Sounds. No Crackles, Rales, Rhonchi, Wheezing Cardiovascular: Regular Rhythm, Regular Rate. No Murmur, Gallops, Rubs Gastrointestinal/Abdominal: Normal Bowel Sounds, Soft. Distended. No Guarding, Rebound, Tenderness Musculoskeletal: No CVA Tenderness Extremity: Normal Capillary Refill Integumentary: Normal Color, Dry, Warm Neurologic: Fully Oriented, Alert, Normal Mood/Affect, Normal Response, ED Treatment Course - LABORATORY CBC & Chemistry Diagram: 06/07/18 22:14 06/07/18 22:14 Medical Decision Making - Medical Decision Making 06/07/18 23:15 The patient is a 77 year old male with a history of HTN, Diverticulitis, Constipation who presents for evaluation of nausea. Differential includes but is not limited to: Obstruction, Constipation, Gastritis, Infectious, Metabolic Derangement. Given the patient's history and physical exam, we will obtain a cbc, cmp, lipase, lactate, coags and CT abdomen/pelvis to evaluate further. We will treat in the meantime with iv fluids and zofran and continue to monitor and reassess while here in the ED. *DC/Admit/Observation/Transfer Diagnosis at time of Disposition: Nausea & vomiting Qualifiers: Vomiting type: vomiting of fecal matter Qualified Code(s): R11.13 - Vomiting of fecal matter - Discharge Dispostion Condition at time of disposition: Stable Decision to Admit order: Yes - Referrals Referrals: Crisitan Al MD [Primary Care Provider] - - Patient Instructions - Post Discharge Activity
[2018-06-07] MEDS ORDERED: ONDANSETRON 4 MG/2 ML VIAL IVPUSH ONE (21:35)
[2018-06-07] MEDS ORDERED: SODIUM CHLORIDE 1,000 ML IV STA (21:35)
--- NOTE | 2018-06-07 21:41 | PDOC ---
Attending Attestation - Resident Resident Name: Caio Gibbs - ED Attending Attestation I have performed the following: I have examined & evaluated the patient, The case was reviewed & discussed with the resident, I agree w/resident's findings & plan, Exceptions are as noted - HPI HPI: 06/07/18 22:33 Mr Martinez is a 77 yo M who presents to the ER with a complaint of nausea, vomiting, abdominal pain x 2 weeks h/o constipation, unsure of last bowel movement h/o ileus requiring NGT Pt has a history of dementia, poor historian - Physicial Exam PE: 06/07/18 22:34 GENERAL: The patient is in no acute distress. LUNGS: Breath sounds equal, clear to auscultation bilaterally. No wheezes, and no crackles. HEART:Regular rate and rhythm, normal S1 and S2 without murmur, rub or gallop. ABDOMEN: Soft, nontender, normoactive bowel sounds. No guarding, no rebound. No masses palpable. EXTREMITIES: Normal range of motion, no edema. NEUROLOGICAL: Cranial nerves II through XII grossly intact. Normal speech. No focal neurological deficits. - Medical Decision Making 06/07/18 22:34 77 yo M presenting with nausea, vomiting Currently no abdominal tenderness Concerning for ileus vs. sbo (seen by PMD, xray concerning for sbo) Labs CT Re assess 06/08/18 01:09 Laboratory Tests 06/07/18 06/07/18 06/07/18 22:14 22:14 22:14 WBC 8.0 Hgb 14.2 Hct 41.1 D Plt Count 209 INR 1.09 BUN 15 Creatinine 0.[address] demonstrates no obstruction Pt was already admitted by Dr. Cristian Al Clinical Impression: nausea, initial presentation
[2018-06-07 22:25] LABS: BASO % 0.4 % (0-2.0); HEMATOCRIT 41.1 % (35.4-49); HEMOGLOBIN 14.2 GM/dL (11.7-16.9); LYMPH % 13.8 % (8-40); MCH 32.2 pg (25.7-33.7); MCHC 34.6 g/dl (32.0-35.9); MEAN PLT VOLUME 8.2 fl (7.5-11.1); MONO % 9.4 % (3.8-10.2); NEUT % 75.4 % (42.8-82.8); PLATELET COUNT 209 K/MM3 (134-434); RBC 4.42 M/mm3 (4.00-5.60); RDW 13.6 % (11.9-15.9)
[2018-06-07] MEDS ORDERED: ONDANSETRON 4 MG/2 ML VIAL ONE (22:35)
[2018-06-07 22:37] LABS: INR 1.09 (0.83-1.09); PROTHROMBIN TIME (PATIENT) 12.3 SEC (9.7-13.0)
[2018-06-07 22:39] LABS: ACTIVATED PTT 28.2 SECONDS (25.2-36.5)
[2018-06-07 22:44] LABS: ALBUMIN 3.9 g/dl (3.4-5.0); ALK PHOS 71 U/L (45-117); ANION GAP 7 MMOL/L (8-16); BILIRUBIN,TOTAL 0.6 mg/dL (0.2-1.0); BLOOD UREA NITROGEN 15 mg/dL (7-18); CALCIUM 8.9 mg/dL (8.5-10.1); CHLORIDE 105 mmol/L (98-107); CO2 27 mmol/L (21-32); CREATININE 0.9 mg/dL (0.7-1.3); GLUCOSE,RANDOM 103 mg/dL (74-106); LIPASE 78 U/L (73-393); POTASSIUM 3.6 mmol/L (3.5-5.1); SGOT/AST 12 U/L (15-37); SGPT/ALT 24 U/L (12-78); SODIUM 139 mmol/L (136-145); TOT PROT 7.4 g/dl (6.4-8.2)
[2018-06-07] MEDS ORDERED: PANTOPRAZOLE SODIUM 40 MG VIAL IVPUSH ONE (23:31)
--- NOTE | 2018-06-07 23:40 | HP ---
Admitting History and Physical - Admission Chief Complaint: n/v 2 wks? poor historia sec oms. constipation? 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 Cardiovascular: Yes: HTN Pulmonary: Yes: Asthma Gastrointestinal: Yes: GERD, Other (distended) Psych: Yes: Other (oms) - Past Surgical History Past Surgical History: Yes: Appendectomy, Hernia Repair - Advance Directives Advance Directives: Yes: Health Care Proxy - Smoking History Smoking history: Never smoked Have you smoked in the past 12 months: No - Alcohol/Substance Use Hx Alcohol Use: No History of Substance Use: reports: None - Social History Usual Living Arrangement: Yes: Alone ADL: Independent History of Recent Travel: No Home Medications - Allergies Allergies/Adverse Reactions: Allergies Allergy/AdvReac Type Severity Reaction Status Date / Time No Known Allergies Allergy Verified 06/07/18 18:27 - Home Medications Home Medications: Ambulatory Orders Budesonide/Formeterol Fumarate [SYMBICORT 80/4.5mcg -] 1 inh PO DAILY 01/21/14 Cholecalciferol (Vitamin D3) [Vitamin D-3] 2,000 units PO DAILY 01/21/14 Metoprolol Succinate [Toprol XL -] 25 mg PO DAILY 01/21/14 Aspirin [ASA -] 81 mg PO BID tab.chew 03/28/18 Budesonide/Formeterol Fumarate [SYMBICORT 80/4.5mcg -] 2 puff IH BID inhaler Metoprolol Succinate [Toprol XL -] 25 mg PO DAILY tab.sr.24h 03/28/18 Pantoprazole Sodium [Protonix -] 20 mg PO DAILY tablet.ec 03/28/18 Polyethylene Glycol 3350 [Miralax 119 gm Btl -] 17 gm PO DAILY bottle 03/28/18 Family Disease History - Family Disease History Family History: Unremarkable Review of Systems - Review of Systems Gastrointestinal: reports: Bloating, Nausea, Vomiting Physical Examination Vital Signs: Vital Signs Temperature 99.0 F 06/07/18 18:27 Pulse Rate 78 06/07/18 18:27 Respiratory Rate 20 06/07/18 18:27 Blood Pressure 158/88 06/07/18 18:27 O2 Sat by Pulse Oximetry (%) 95 06/07/18 18:27 Constitutional: Yes: Well Nourished Eyes: Yes: WNL HENT: Yes: WNL Neck: Yes: WNL Cardiovascular: No: WNL Respiratory: Yes: WNL Gastrointestinal: Yes: Distention ...Rectal Exam: Yes: Deferred Renal/: Yes: WNL Breast(s): Yes: WNL Musculoskeletal: Yes: WNL Extremities: Yes: WNL Edema: No Peripheral Pulses WNL: Yes Integumentary: Yes: WNL Neurological: Yes: WNL ...Motor Strength: WNL Psychiatric: Yes: Other (oms) Labs: CBC, BMP 06/07/18 22:14 06/07/18 22:14 Assessment/Plan sx and gi consults npo chk ct abd iv zofran iv bp med ? ngt buy sx if needed
[2018-06-07] MEDS ORDERED: PANTOPRAZOLE SODIUM 40 MG VIAL ONE (23:56)
[2018-06-08] MEDS: SODIUM CHLORIDE 1,000 ML IV SCH ×3 (00:23→23:45)
[2018-06-08] MEDS: metoPROLOL SUCCINATE 25 MG TAB.SR.24H (FP) PO SCH ×2 (00:23→10:25)
[2018-06-08 05:06] LABS: BASO % 0.3 % (0-2.0); EOS % 3.4 % (0-4.5); HEMATOCRIT 40.5 % (35.4-49); HEMOGLOBIN 14.1 GM/dL (11.7-16.9); LYMPH % 14.3 % (8-40); MCH 32.2 pg (25.7-33.7); MCHC 34.7 g/dl (32.0-35.9); MEAN CELL VOLUME 92.8 fl (80-96); MEAN PLT VOLUME 8.1 fl (7.5-11.1); MONO % 10.4 % (3.8-10.2); NEUT % 71.6 % (42.8-82.8); PLATELET COUNT 196 K/MM3 (134-434); RBC 4.37 M/mm3 (4.00-5.60); RDW 13.6 % (11.9-15.9)
[2018-06-08 05:30] LABS: ALBUMIN 3.7 g/dl (3.4-5.0); ANION GAP 6 MMOL/L (8-16); BILIRUBIN,TOTAL 0.6 mg/dL (0.2-1.0); CALCIUM 8.3 mg/dL (8.5-10.1); CHLORIDE 109 mmol/L (98-107); CO2 25 mmol/L (21-32); CREATININE 0.8 mg/dL (0.7-1.3); GLUCOSE,RANDOM 90 mg/dL (74-106); SGPT/ALT 23 U/L (12-78); SODIUM 140 mmol/L (136-145); TOT PROT 6.9 g/dl (6.4-8.2)
[2018-06-08 05:36] LABS: ALK PHOS 72 U/L (45-117); BLOOD UREA NITROGEN 13 mg/dL (7-18)
[2018-06-08 05:38] LABS: POTASSIUM 4.3 mmol/L (3.5-5.1)
[2018-06-08 05:39] LABS: SGOT/AST 15 U/L (15-37)
--- NOTE | 2018-06-08 08:07 | CON.GI ---
Consult Consult Specialty:: GI Reason for Consultation:: nause, vomiting x 2 weeks - History of Present Illness History of Present Illness: chart reviewed. Per ED intake last night: The patient is a 77 year old male with a history of HTN, Diverticulitis, Constipation who presents for evaluation of nausea. The patient notes a 2 week history of intermittent nausea with some occasional non- bilious, non-bloody vomiting. The patient notes that he is constipated at baseline and does not know when his last bowel movement was. Of note, the patient was admitted 2 months ago and developed an ileus after a v/p shunt procedure. He otherwise denies fevers, chills, SOB, chest pain, abdominal pain , or changes with urination or bowel movements. He states that he is currently asymptomatic. At the time of this encouter the pt appeard NAD, awakae and alert, talkative, pain-free. Denied feeling nauseous, or having dyspepsia. The abdomen was found to be distended, non-tender, with normal bowel sounds. Normal CBC, CMP. CT A/P Comparison: 03/26/2018. Contiguous transaxial images were obtained from the diaphragmatic domes and pubic symphysis after the administration of oral and IV contrast. Sagittal and coronal reconstructions were performed. Study is limited due to patient condition including inability to suspend respirations with resultant motion. Lung bases: Negative. Bone: Osteopenia and degenerative changes. Large left acetabular cyst most likely degenerative. Liver: Negative. Gallbladder: Negative. Biliary tree: Negative. Spleen: Negative. Pancreas: Negative. Adrenals: Negative. Kidneys: Dilated left extrarenal pelvis and mild hydroureter to the level of the bladder which is distended. Pelvis: Significantly distended urinary bladder. Significantly enlarged inhomogeneously enhancing prostate gland including hypodense areas and calcification. Bowel: Moderate retention of stool. Appendix not seen but no inflammatory changes in the right lower quadrant. Other: Small hiatal hernia. Status post repair of midline ventral hernia. There is a CHILDREN'S CHOIR DIRECTOR shunt catheter entering the anterior right upper pelvis. No fluid collection seen surrounding it. Impression: Limitations related to motion. No acute pathology identified. Moderately distended urinary bladder and significantly enlarged inhomogeneously enhancing prostate. This may cause some mild obstructive uropathy on the left. CHILDREN'S CHOIR DIRECTOR shunt catheter. Other findings as above. The study was initially read by Talat. 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 Cardio/Vascular: Yes: HTN Pulmonary: Yes: Asthma Gastrointestinal: Yes: GERD, Other (distended) Psych: Yes: Other (oms) - Past Surgical History Past Surgical History: Yes: Appendectomy, Hernia Repair - Alcohol/Substance Use Hx Alcohol Use: No History of Substance Use: reports: None - Smoking History Smoking history: Never smoked Have you smoked in the past 12 months: No - Social History ADL: Independent History of Recent Travel: No Home Medications - Allergies Allergies/Adverse Reactions: Allergies Allergy/AdvReac Type Severity Reaction Status Date / Time No Known Allergies Allergy Verified 06/07/18 18:27 - Home Medications Home Medications: Ambulatory Orders Budesonide/Formeterol Fumarate [SYMBICORT 80/4.5mcg -] 2 puff IH BID inhaler Metoprolol Succinate [Toprol XL -] 25 mg PO DAILY tab.sr.24h 03/28/18 Pantoprazole Sodium [Protonix -] 20 mg PO DAILY tablet.ec 03/28/18 Amlodipine Besylate 10 mg PO DAILY 06/08/18 Family Disease History - Family Disease History Family History: Unremarkable Review of Systems Findings/Remarks: as per HPI, ED, H&P Physical Exam-GI Vital Signs: Vital Signs Temperature 98.5 F 06/08/18 05:44 Pulse Rate 89 06/08/18 05:44 Respiratory Rate 19 06/08/18 05:44 Blood Pressure 146/76 06/08/18 05:44 O2 Sat by Pulse Oximetry (%) 95 06/07/18 18:27 Constitutional: Yes: Well Nourished, No Distress, Calm Eyes: Yes: Conjunctiva Clear HENT: Yes: Atraumatic Neck: Yes: Supple Cardiovascular: Yes: Regular Rate and Rhythm Respiratory: Yes: Regular Gastrointestinal Inspection: Yes: Distention. No: Ascites ...Auscultate: Yes: Normoactive Bowel Sounds ...Palpate: No: Firm/Rigid, Guarding, Mass, Tenderness, Tenderness, Epigastium, Tenderness, Rebound ...Percussion: No: Fluid Wave Neurological: Yes: Alert. No: Confusion, Lethargy Labs: CBC, BMP 06/08/18 04:52 06/08/18 04:52 INR, PTT INR 1.09 (0.83-1.09) 06/07/18 22:14 Laboratory Last Values WBC 7.0 K/mm3 (4.0-10.0) 06/08/18 04:52 RBC 4.37 M/mm3 (4.00-5.60) 06/08/18 04:52 Hgb 14.1 GM/dL (11.7-16.9) 06/08/18 04:52 Hct 40.5 % (35.4-49) 06/08/18 04:52 MCV 92.8 fl (80-96) 06/08/18 04:52 MCH 32.2 pg (25.7-33.7) 06/08/18 04:52 MCHC 34.7 g/dl (32.0-35.9) 06/08/18 04:52 RDW 13.6 % (11.9-15.9) 06/08/18 04:52 Plt Count 196 K/MM3 (134-434) 06/08/18 04:52 MPV 8.1 fl (7.5-11.1) 06/08/18 04:52 Absolute Neuts (auto) 5.0 K/mm3 (1.5-8.0) 06/08/18 04:52 Neutrophils % 71.6 % (42.8-82.8) 06/08/18 04:52 Lymphocytes % 14.3 % (8-40) 06/08/18 04:52 Monocytes % 10.4 % (3.8-10.2) H 06/08/18 04:52 Eosinophils % 3.4 % (0-4.5) D 06/08/18 04:52 Basophils % 0.3 % (0-2.0) 06/08/18 04:52 Nucleated RBC % 0 % (0-0) 06/08/18 04:52 PT with INR 12.30 SEC (9.7-13.0) 06/07/18 22:14 INR 1.09 (0.83-1.09) 06/07/18 22:14 PTT (Actin FS) 28.2 SECONDS (25.2-36.5) 06/07/18 22:14 Sodium 140 mmol/L (136-145) 06/08/18 04:52 Potassium 4.3 mmol/L (3.5-5.1) 06/08/18 04:52 Chloride 109 mmol/L (98-107) H 06/08/18 04:52 Carbon Dioxide 25 mmol/L (21-32) 06/08/18 04:52 Anion Gap 6 MMOL/L (8-16) L 06/08/18 04:52 BUN 13 mg/dL (7-18) 06/08/18 04:52 Creatinine 0.8 mg/dL (0.7-1.3) 06/08/18 04:52 Creat Clearance w eGFR > 60 (>60) 06/08/18 04:52 Random Glucose 90 mg/dL (74-106) 06/08/18 04:52 Lactic Acid 0.8 mmol/L (0.0-2.0) 06/07/18 22:14 Calcium 8.3 mg/dL (8.5-10.1) L 06/08/18 04:52 Total Bilirubin 0.6 mg/dL (0.2-1.0) 06/08/18 04:52 AST 15 U/L (15-37) D 06/08/18 04:52 ALT 23 U/L (12-78) 06/08/18 04:52 Alkaline Phosphatase 72 U/L (45-117) 06/08/18 04:52 Total Protein 6.9 g/dl (6.4-8.2) 06/08/18 04:52 Albumin 3.7 g/dl (3.4-5.0) 06/08/18 04:52 Lipase 78 U/L (73-393) 06/07/18 22:14 Imaging - Results Cat Scan: Report Reviewed Problem List - Problems (1) Nausea & vomiting Code(s): R11.2 - NAUSEA WITH VOMITING, UNSPECIFIED Qualifiers: Vomiting type: vomiting of fecal matter Qualified Code(s): R11.13 - Vomiting of fecal matter Assessment/Plan An 77M with an abdominal distension on the exam however no significant GI- related pathology on a CT. A Urinary retention/distended urinary bladder and stool in the colon were noted. Recommend: urology evaluation. Miralax bowel prep ordered. Liquid diet and advance as tolerated. Miralax tid daily starting tomorrow.
[2018-06-08] MEDS ORDERED: SODIUM PHOSPHATE/NA BIPHOS 133 ML ENEMA PR ONE (08:11)
[2018-06-08] MEDS ORDERED: POLYETHYLENE GLYCOL 3350 255 GM BTL PO ONE (09:00)
--- NOTE | 2018-06-08 09:04 | PN ---
Progress Note, Physician Chief Complaint: less n/v abd still distended - Current Medication List Current Medications: Active Medications Sodium Chloride (Normal Saline -) 1,000 mls @ 100 mls/hr IV ASDIR [facility] Last Admin: 06/08/18 00:23 Dose: 100 mls/hr Metoprolol Succinate (Toprol Xl -) 25 mg PO DAILY [facility] Last Admin: 06/08/18 00:23 Dose: 25 mg Ondansetron HCl (Zofran Injection) 4 mg IVPUSH Q4H PRN PRN Reason: NAUSEA AND/OR VOMITING Polyethylene Glycol (Miralax (For Bowel Prep) -) 255 gm PO ONCE ONE Stop: 06/08/18 09:01 - Objective Vital Signs: Vital Signs Temperature 98.5 F 06/08/18 05:44 Pulse Rate 89 06/08/18 05:44 Respiratory Rate 19 06/08/18 05:44 Blood Pressure 146/76 06/08/18 05:44 O2 Sat by Pulse Oximetry (%) 95 06/07/18 18:27 Constitutional: Yes: Calm Eyes: Yes: WNL HENT: Yes: WNL Neck: Yes: WNL Cardiovascular: Yes: WNL Respiratory: Yes: WNL Gastrointestinal: Yes: Hypoactive Bowel Sounds ...Rectal Exam: Yes: Deferred Genitourinary: Yes: Other (disteded blader) Breast(s): Yes: WNL Musculoskeletal: Yes: WNL Extremities: Yes: WNL Edema: No Integumentary: Yes: WNL Neurological: Yes: Confusion ...Motor Strength: WNL Psychiatric: Yes: Other (oms) Labs: CBC, BMP 06/08/18 04:52 06/08/18 04:52 INR, PTT INR 1.09 (0.83-1.09) 06/07/18 22:14 Assessment/Plan liq diet gu follow blader scan ? foly if needed chk psa needs authozation sx if f/u if needed fleet enamas miralax po
--- NOTE | 2018-06-08 10:32 | EKG ---
Test Reason : Blood Pressure : / mmHG Vent. Rate : 060 BPM Atrial Rate : 060 BPM P-R Int : 176 ms QRS Dur : 082 ms QT Int : 436 ms P-R-T Axes : 007 056 083 degrees QTc Int : 436 ms POOR DATA QUALITY, INTERPRETATION MAY BE ADVERSELY AFFECTED NORMAL SINUS RHYTHM NORMAL ECG WHEN COMPARED WITH ECG OF 20-MAR-2018 23:34, NO SIGNIFICANT CHANGE WAS FOUND Confirmed by IVA REAL, FANTA ([id number]) on 06/08/2018 10:32:04 AM Referred By: Confirmed By:FANTA ENRIQUE MD
[2018-06-08 11:18] VITALS: BMI 21.9
[2018-06-08] MEDS: ONDANSETRON 4 MG/2 ML VIAL IVPUSH PRN (12:56)
--- NOTE | 2018-06-08 14:02 | CONS ---
DATE OF CONSULTATION: DATE OF DICTATION: 06/08/2018 The patient does have history of high blood pressure, diverticulitis, chronic constipation. He presented to the emergency room with severe nausea and abdominal pain. He states he has been having intermittent nausea with occasional vomiting for the past 2 weeks. He denies any hematemesis. The patient states that he has had a long and chronic history of constipation. He also had several episodes of small bowel obstruction. He is status post an AV shunt procedure in the past. He also complains of prostatism including frequency, urgency, terminal dribbling. In the emergency room, he was found to be afebrile with a temperature of 99. His blood pressure was 158/88, respirations 20, pulse 78, pulse oximetry 95%. BUN was 15, creatinine was 0.9, random glucose was 103. His white count was 8000, his hemoglobin was 14.2, hematocrit was 41.1, platelets were 209. The patient underwent a CT scan of his abdomen and pelvis, and this came back as moderately distended urinary bladder and significantly enlarged and homogenously enhancing prostate gland. This most likely is causing obstructive uropathy. On the left side, there is mild left hydroureteronephrosis. The patients lungs were negative. Biliary tree was negative. Pancreas, adrenals, and gallbladder were all normal. The kidneys revealed a dilated left renal system including the left ureter. There was a small hiatal hernia and there appeared to be a repair of a midline ventral hernia. There was also evidence of a [employer] shunt catheter entering the anterior upper pelvis. No fluid collection was seen surrounding it. Patients urine is pending. Culture and sensitivity, his latest results reveal white count of 7000, his BUN is 19, creatinine is 0.8. Liver enzymes were all within normal limits IMPRESSION: At present, is a 77-year-old male with history of prostatism, CT scan evidence of urinary retention with left hydroureteronephrosis. Patient should have a Castillo catheter placed for decompression of his bladder and resolution of his left hydronephrosis. Will need a workup including a cystoscopy, a cystometrogram with a possible transurethral prostate vaporization when he is medically optimized. Will follow with you. Beulah [id number]
[2018-06-09 08:10] LABS: BASO % 0.3 % (0-2.0); EOS % 5.2 % (0-4.5); HEMATOCRIT 39.5 % (35.4-49); HEMOGLOBIN 13.6 GM/dL (11.7-16.9); LYMPH % 15.2 % (8-40); MCH 31.7 pg (25.7-33.7); MCHC 34.5 g/dl (32.0-35.9); MEAN PLT VOLUME 8.2 fl (7.5-11.1); MONO % 11.1 % (3.8-10.2); NEUT % 68.2 % (42.8-82.8); PLATELET COUNT 167 K/MM3 (134-434); RDW 13.7 % (11.9-15.9); WHITE BLOOD COUNT 7.1 K/mm3 (4.0-10.0)
[2018-06-09 08:16] LABS: ANION GAP 7 MMOL/L (8-16); BLOOD UREA NITROGEN 9 mg/dL (7-18); CALCIUM 8.7 mg/dL (8.5-10.1); CHLORIDE 109 mmol/L (98-107); CO2 27 mmol/L (21-32); GLUCOSE,RANDOM 88 mg/dL (74-106); POTASSIUM 3.8 mmol/L (3.5-5.1); SODIUM 143 mmol/L (136-145)
[2018-06-09 08:17] LABS: CREATININE 0.7 mg/dL (0.7-1.3)
[2018-06-09] MEDS: SODIUM CHLORIDE 1,000 ML IV SCH ×3 (09:12→23:45)
[2018-06-09] MEDS: metoPROLOL SUCCINATE 25 MG TAB.SR.24H (FP) PO SCH (09:12)
--- NOTE | 2018-06-09 09:39 | CONS ---
DATE OF CONSULTATION: 06/09/2018 REQUESTING PHYSICIAN: Cristian Al MD RESPONDING PHYSICIAN: Vito Gardner MD REASON FOR CONSULTATION: Abdominal distention, nausea. HISTORY: This is a 77-year-old man with a history of chronic constipation using laxatives on a daily basis in order to have bowel movements. Apparently, he had a [id number] of difficulty moving his bowels with progressive abdominal distention associated with nausea and some vomiting intermittently. The patient was initially admitted to the hospital to rule out the possibility of small bowel obstruction. A CAT scan demonstrates no evidence of small bowel obstruction. There is, however, a large amount of fecal stasis within the colon. The patient does give a history, but I am not certainly whether the history is terribly accurate. 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 PAST SURGICAL HISTORY: Significant for an appendectomy at age 12, AUTO BODY MECHANIC shunt placement more recently as well as a hernia repair. CURRENT MEDICATIONS: Include daily MiraLAX, Protonix, Toprol XL, baby aspirin, Symbicort. SOCIAL HISTORY: Negative tobacco. Negative alcohol. PHYSICAL EXAMINATION: General: Awake and alert in no acute distress requesting diet. The patient states he had a bowel movement yesterday, although the nurses cannot confirm such. States he has a small amount of flatus, but I am not certain that is accurate as well. Vital Signs: Stable. Afebrile. Abdomen: Moderate distention with tympany. Soft and nontender, otherwise. Scars in the right lower quadrant consistent with placement of a shunt as well as prior appendectomy. LABORATORY DATA: White count 7.1 with a normal hemoglobin and hematocrit. IMPRESSION: A [id number] of progressive abdominal distention associated with nausea and intermittent vomiting. Appears to be related to fecal stasis. The patient with underlying chronic constipation requiring daily laxative. No acute surgical findings on physical exam. No obvious bowel obstruction noted on CT scanning. SUGGEST: Discharge with medical management, i.e. enemas, laxatives, etc. No obvious surgical issues. Reconsult Beulah Gill/[id number] cc: Cristian Al MD
[2018-06-09] MEDS ORDERED: SODIUM PHOSPHATE/NA BIPHOS 133 ML ENEMA PR ONE (12:54)
--- NOTE | 2018-06-09 12:54 | PN ---
Progress Note, Physician History of Present Illness: pt bm better diel ok tolerating oob feels better foly intact gu to keep foly in - Current Medication List Current Medications: Active Medications Sodium Chloride (Normal Saline -) 1,000 mls @ 100 mls/hr IV [facility]IR [facility] Last Admin: 06/09/18 09:12 Dose: 100 mls/hr Metoprolol Succinate (Toprol Xl -) 25 mg PO DAILY [facility] Last Admin: 06/09/18 09:12 Dose: 25 mg Ondansetron HCl (Zofran Injection) 4 mg IVPUSH Q4H PRN PRN Reason: NAUSEA AND/OR VOMITING Last Admin: 06/08/18 12:56 Dose: 4 mg - Objective Vital Signs: Vital Signs Temperature 98.2 F 06/09/18 10:00 Pulse Rate 52 L 06/09/18 10:00 Respiratory Rate 20 06/09/18 10:00 Blood Pressure 140/74 06/09/18 10:00 O2 Sat by Pulse Oximetry (%) 98 06/08/18 21:00 Constitutional: Yes: Calm Eyes: Yes: WNL HENT: Yes: WNL Neck: Yes: WNL Cardiovascular: Yes: WNL Respiratory: Yes: WNL, Other (less distanmded) Genitourinary: Yes: Castillo Present Breast(s): Yes: WNL Musculoskeletal: Yes: WNL Extremities: Yes: WNL Edema: No Integumentary: Yes: WNL Neurological: Yes: WNL ...Motor Strength: WNL Psychiatric: Yes: WNL Labs: CBC, BMP 06/09/18 06:20 06/09/18 06:20 INR, PTT INR 1.09 (0.83-1.09) 06/07/18 22:14 Assessment/Plan high colonic enamas gu f/u cont tx as is
[2018-06-10] MEDS: SODIUM CHLORIDE 1,000 ML IV SCH (07:09)
[2018-06-10 07:46] LABS: BASO % 0.3 % (0-2.0); EOS % 6.7 % (0-4.5); HEMATOCRIT 37.2 % (35.4-49); HEMOGLOBIN 12.9 GM/dL (11.7-16.9); LYMPH % 18.5 % (8-40); MCH 31.9 pg (25.7-33.7); MCHC 34.7 g/dl (32.0-35.9); MEAN CELL VOLUME 91.9 fl (80-96); MEAN PLT VOLUME 8.1 fl (7.5-11.1); MONO % 12.7 % (3.8-10.2); NEUT % 61.8 % (42.8-82.8); PLATELET COUNT 152 K/MM3 (134-434); RBC 4.05 M/mm3 (4.00-5.60); RDW 13.7 % (11.9-15.9); WHITE BLOOD COUNT 6.3 K/mm3 (4.0-10.0)
[2018-06-10] MEDS: TAMSULOSIN HCL 0.4 MG CAP.ER.24H (FP) PO SCH (08:32)
[2018-06-10] MEDS: ONDANSETRON 4 MG/2 ML VIAL IVPUSH PRN (08:35)
[2018-06-10 08:42] LABS: CHLORIDE 109 mmol/L (98-107); POTASSIUM 3.9 mmol/L (3.5-5.1); SODIUM 145 mmol/L (136-145)
[2018-06-10 08:50] LABS: ANION GAP 10 MMOL/L (8-16); BLOOD UREA NITROGEN 12 mg/dL (7-18); CALCIUM 8.3 mg/dL (8.5-10.1); CO2 26 mmol/L (21-32); CREATININE 0.8 mg/dL (0.7-1.3); GLUCOSE,RANDOM 84 mg/dL (74-106)
[2018-06-10] MEDS ORDERED: SODIUM PHOSPHATE/NA BIPHOS 133 ML ENEMA PR ONE (11:11)
[2018-06-10] MEDS: metoPROLOL SUCCINATE 25 MG TAB.SR.24H (FP) PO SCH (11:21)
--- NOTE | 2018-06-10 14:16 | PN ---
Progress Note, Physician History of Present Illness: bm x 2 vss good apetite - Current Medication List Current Medications: Active Medications Metoprolol Succinate (Toprol Xl -) 25 mg PO DAILY [facility] Last Admin: 06/10/18 11:21 Dose: 25 mg Ondansetron HCl (Zofran Injection) 4 mg IVPUSH Q4H PRN PRN Reason: NAUSEA AND/OR VOMITING Last Admin: 06/10/18 08:35 Dose: 4 mg Tamsulosin HCl (Flomax -) 0.8 mg PO DAILY@0830 [facility] Last Admin: 06/10/18 08:32 Dose: 0.8 mg - Objective Vital Signs: Vital Signs Temperature 97.7 F 06/10/18 08:30 Pulse Rate 55 L 06/10/18 11:19 Respiratory Rate 20 06/10/18 11:19 Blood Pressure 136/81 06/10/18 11:19 O2 Sat by Pulse Oximetry (%) 96 06/10/18 09:00 Constitutional: Yes: No Distress Eyes: Yes: WNL HENT: Yes: WNL Neck: Yes: WNL Cardiovascular: Yes: WNL Respiratory: Yes: WNL Gastrointestinal: Yes: Normal Bowel Sounds ...Rectal Exam: Yes: Deferred Genitourinary: Yes: WNL Breast(s): Yes: WNL Musculoskeletal: Yes: WNL Extremities: Yes: WNL Edema: No Peripheral Pulses WNL: No Integumentary: Yes: WNL Neurological: Yes: WNL ...Motor Strength: WNL Labs: CBC, BMP 06/10/18 07:00 06/10/18 07:00 INR, PTT INR 1.09 (0.83-1.09) 06/07/18 22:14 Assessment/Plan gu to ? d/c foly cont tx as is d/c iv cont flomax soc serv to see pt in am p/t tx
--- NOTE | 2018-06-10 19:18 | PN ---
Progress Note (short form) - Note Progress Note: UROLOGY NOTE. pt. with bph AND LUTS,has been on flomax 0.8 mg. rianna,will d/c bergeron in am and give a trail at voiding. will also perform a bladder scan 6 hs. after the bergeron has been removed.
[2018-06-11] MEDS: TAMSULOSIN HCL 0.4 MG CAP.ER.24H (FP) PO SCH (07:50)
[2018-06-11 08:13] LABS: BASO % 0.4 % (0-2.0); EOS % 7.7 % (0-4.5); HEMATOCRIT 37.2 % (35.4-49); HEMOGLOBIN 12.8 GM/dL (11.7-16.9); LYMPH % 20.4 % (8-40); MCH 31.8 pg (25.7-33.7); MCHC 34.4 g/dl (32.0-35.9); MEAN CELL VOLUME 92.5 fl (80-96); MEAN PLT VOLUME 8.5 fl (7.5-11.1); NEUT % 59.5 % (42.8-82.8); PLATELET COUNT 162 K/MM3 (134-434); RBC 4.02 M/mm3 (4.00-5.60); RDW 13.6 % (11.9-15.9); WHITE BLOOD COUNT 5.9 K/mm3 (4.0-10.0)
[2018-06-11 08:15] LABS: ANION GAP 10 MMOL/L (8-16); BLOOD UREA NITROGEN 13 mg/dL (7-18); CALCIUM 8.5 mg/dL (8.5-10.1); CHLORIDE 108 mmol/L (98-107); CO2 27 mmol/L (21-32); CREATININE 0.8 mg/dL (0.7-1.3); GLUCOSE,RANDOM 91 mg/dL (74-106); POTASSIUM 3.9 mmol/L (3.5-5.1); SODIUM 145 mmol/L (136-145)
[2018-06-11] MEDS: metoPROLOL SUCCINATE 25 MG TAB.SR.24H (FP) PO SCH (09:39)
--- NOTE | 2018-06-11 12:12 | PN ---
Progress Note, Physician - Current Medication List Current Medications: Active Medications Metoprolol Succinate (Toprol Xl -) 25 mg PO DAILY [facility] Last Admin: 06/11/18 09:39 Dose: 25 mg Ondansetron HCl (Zofran Injection) 4 mg IVPUSH Q4H PRN PRN Reason: NAUSEA AND/OR VOMITING Last Admin: 06/10/18 08:35 Dose: 4 mg Tamsulosin HCl (Flomax -) 0.8 mg PO DAILY@0830 [facility] Last Admin: 06/11/18 07:50 Dose: 0.8 mg - Objective Vital Signs: Vital Signs Temperature 98.0 F 06/11/18 09:24 Pulse Rate 52 L 06/11/18 09:24 Respiratory Rate 18 06/11/18 09:24 Blood Pressure 184/74 06/11/18 09:24 O2 Sat by Pulse Oximetry (%) 96 06/11/18 09:00 Labs: CBC, BMP 06/11/18 07:00 06/11/18 07:00 INR, PTT INR 1.09 (0.83-1.09) 06/07/18 22:14 Assessment/Plan plan to d/c foly after sono if urinating he will go to [facility] [place] for short rehab pt bad oms lives alone not good and dangerous to self and others
[2018-06-12] MEDS: TAMSULOSIN HCL 0.4 MG CAP.ER.24H (FP) PO SCH (10:19)
[2018-06-12] MEDS: metoPROLOL SUCCINATE 25 MG TAB.SR.24H (FP) PO SCH (10:19)
--- NOTE | 2018-06-12 10:47 | DS ---
Physical Examination Vital Signs: Vital Signs Temperature 97.7 F 06/12/18 09:28 Pulse Rate 53 L 06/12/18 09:28 Respiratory Rate 20 06/12/18 09:28 Blood Pressure 147/91 06/12/18 09:28 O2 Sat by Pulse Oximetry (%) 96 06/11/18 21:00 Constitutional: Yes: Well Nourished Eyes: Yes: WNL, Occular Prosthesis HENT: Yes: WNL Neck: Yes: WNL Cardiovascular: Yes: WNL Respiratory: Yes: WNL Gastrointestinal: Yes: WNL, Normal Bowel Sounds ...Rectal Exam: Yes: Deferred Renal/: Yes: WNL Breast(s): Yes: WNL Musculoskeletal: Yes: WNL Extremities: Yes: WNL Edema: Yes Peripheral Pulses WNL: Yes Integumentary: Yes: WNL Neurological: Yes: Confusion ...Motor Strength: WNL Psychiatric: Yes: Other (confused) Labs: CBC, BMP 06/11/18 07:00 06/11/18 07:00 Discharge Summary Reason For Visit: NAUSEA VOMITING Current Active Problems Nausea & vomiting (Acute) Condition: Stable - Instructions Diet, Activity, Other Instructions: cont all meds as is metoprolol pantoprozol symbocort ih asa x 2 a wk Referrals: Cristian Al MD [Primary Care Provider] - Disposition: [facility] - Home Medications Comprehensive Discharge Medication List: Ambulatory Orders Budesonide/Formeterol Fumarate [SYMBICORT 80/4.5mcg -] 2 puff IH BID inhaler Metoprolol Succinate [Toprol XL -] 25 mg PO DAILY tab.sr.24h 03/28/18 Pantoprazole Sodium [Protonix -] 20 mg PO DAILY tablet.ec 03/28/18 Amlodipine Besylate 10 mg PO DAILY 06/08/18
[2018-06-12 14:04] VITALS: BP 136/64; PULSE 51; TEMP 98.4
[2018-06-12] MEDS ORDERED: BUDESONIDE/FORMETEROL FUMARATE 80/4.5 mcg INHALER IH SCH (22:00)
[2018-06-13] MEDS ORDERED: PANTOPRAZOLE 20 MG TABLET (FP) PO SCH (10:00)
[2018-06-13] MEDS ORDERED: metoPROLOL SUCCINATE 25 MG TAB.SR.24H (FP) PO SCH (10:00)
== END 2018-06-12 17:30 | DRG 694 ==
LOC: JER 18:02 → JERBED 23:48 → UNDOADMIN 06-08 01:23 → JERBED 06-08 01:23 → J6S 06-08 07:12
PROVIDERS: ADMIT Family Medicine; ATTEND Family Medicine
DX: N13.30 Unspecified hydronephrosis (principal); R11.2 Nausea with vomiting, unspecified; I10 Essential (primary) hypertension; K21.9 Gastro-esophageal reflux disease without esophagitis; K59.09 Other constipation; R33.9 Retention of urine, unspecified
CPT/HCPCS: 36415; 74177-TC; 76775-TC; 76856-TC; 80048; 80053; 83605; 83690; 85025; 85610; 85730; 93005; 93010; 97116-GP; 97161-GP; 99282-25; J7030